=== PATIENT | male | born 1970 | race Caucasian/White ===

== ENCOUNTER → 2019-09-11 16:03 | Outpatient (CLI) | payer MEDICAID, SELFPAY ==
--- NOTE | 2019-09-11 16:12 | RAD_ITS ---
STUDY: X-RAY - LEFT SHOULDER REASON FOR EXAM: Male, 49 years old. left shoulder pain, patient states she has a torn labrum TECHNIQUE: 4 view(s) of the shoulder. COMPARISON: None. FINDINGS: Narrowed glenohumeral articulation. Normal acromioclavicular joint. Normal acromion. There is spurring of the medial humeral head and inferior glenoid process. The soft tissue structures are unremarkable. Normal visualized pulmonary apex. RAD/Shoulder min 2 Views IMPRESSION: Degenerative changes. No evidence for acute fracture. Electronically Signed: Drake Gore MD at 22:30 EST , Service support ,
== END ==
PROVIDERS: Referring Provider Nurse Practitioner Family; Visit Provider Nurse Practitioner Family
DX: M25.512 Pain in left shoulder (principal)
CPT/HCPCS: 73030

== ENCOUNTER → 2019-10-21 13:01 | Outpatient (CLI) | payer MEDICAID, SELFPAY ==
[2019-09-20 09:48] VITALS: BMI 29.9
--- NOTE | 2019-10-21 13:03 | MRI_ITS ---
STUDY: MRI LEFT SHOULDER REASON FOR EXAM: Left shoulder pain, limited range of motion, history of dislocations. TECHNIQUE: Standardized fat and water weighted pulse sequences were obtained in all 3 orthogonal planes. COMPARISON: Radiographs 09/11/2019. FINDINGS: There is mild supraspinatus tendinosis (T2 sagittal image 19) without discrete tendon tear. Normal infraspinatus tendon. There is mild subscapularis tendinosis (T2 axial image 14) without discrete tendon tear. Normal teres minor tendon. Normal supraspinatus muscle. Normal infraspinatus muscle. Normal subscapularis muscle. Normal teres minor muscle. There is glenohumeral arthrosis with marginal osteophytes of the humeral head, subchondral cystic change and chondral thinning (T2 coronal images 10-15). There is a joint effusion with fluid extending into the bicipital tendon sheath and intra-articular bodies in the axillary recess (T2 coronal images 9-12), bicipital tendon sheath (proton density axial images 15-17) and subscapularis recess (T2 sagittal images 11, 12). Normal intracapsular long biceps tendon. There is diffuse tear/degeneration of the labrum. Normal capsulo- ligamentous complex. There is no substantial acromioclavicular arthrosis. There is an os acromiale (T2 axial image 3). There is a Type II morphology (curved), with a neutral orientation. There is no subacromial-subdeltoid bursal fluid. Normal visualized coracohumeral and coracoacromial ligaments. Normal deltoid muscle. Normal trapezius muscle. MRI/Upper Ext Joint Only(Routine) IMPRESSION: Mild supraspinatus and subscapularis tendinosis without demonstrated rotator cuff tear. Glenohumeral arthrosis with intra-articular bodies and tear/degeneration of the labrum. Os acromiale. Glenohumeral joint effusion. Electronically Signed: Rocky Albert MD at 14:15 EDT Tel , Service support ,
== END ==
PROVIDERS: Referring Provider Physician Assistant; Visit Provider Physician Assistant
DX: M19.012 Primary osteoarthritis, left shoulder (principal); M25.512 Pain in left shoulder
CPT/HCPCS: 73221

== ENCOUNTER 2019-10-31 14:02 | Inpatient (IN) | payer MEDICAID, SELFPAY ==
[2019-09-20 09:48] VITALS: BMI 29.9
[2019-10-31] VITALS (11 sets, daily range): BP systolic 135–161; BP diastolic 88–103; PULSE 84–109; RESP 14–24; TEMP 36.9–39.5; O2SAT 92–96; BMI 29.4; BMI 29.0
--- NOTE | 2019-10-31 14:28 | RAD_ITS ---
STUDY: X-RAY CHEST REASON FOR EXAM: Male, 49 years old. FEVER, COUGH, MCCONNELL AND EGOPHONY RLL TECHNIQUE: Single AP portable view of the chest. COMPARISON: None. FINDINGS: EKG electrodes are seen. Patchy infiltrates in both upper lobes more prominent on the right side. There is no demonstrated pleural abnormality. Normal size heart. Normal mediastinum and irene. Normal visualized pulmonary arteries. There is atherosclerotic tortuosity of the aortic arch and descending thoracic aorta. Normal visualized thoracic spine. Normal visualized ribs, clavicles, and shoulders. There is no demonstrated abnormality of the visualized soft tissue structures of the upper abdomen. RAD/Chest 1 View (Portable) IMPRESSION: Patchy infiltrates in both upper lobes worse on the right side. Electronically Signed: Linus Almanzar, at 14:56 EDT , Service support ,
--- NOTE | 2019-10-31 14:28 | EKG12_ITS ---
Test Reason : SOB Blood Pressure : / mmHG Vent. Rate : 092 BPM Atrial Rate : 092 BPM P-R Int : 146 ms QRS Dur : 098 ms QT Int : 354 ms P-R-T Axes : 057 021 045 degrees QTc Int : 437 ms Normal sinus rhythm Possible Left atrial enlargement Borderline ECG Confirmed by JAN GONSALES ([id number]), makeup editor PK RODRIGUEZ ([id number]) on 11/04/2019 1:03:57 PM Referred By: JUNAID Confirmed By:JAN GONSALES
--- NOTE | 2019-10-31 14:31 | ED.VIS.GEN ---
History of Present Illness Chief Complaint: Shortness of Breath Informant: Patient Onset: Days - Onset 4 days ago October 27 Context: Sudden Onset Timing: Continuous Quality: Fever, upper respiratory symptoms and scantly productive cough Location: Upper respiratory Current Severity: Mild Maximum Severity: Moderate Worsened by: Dyspnea on exertion Relieved by: Nothing Associated Symptoms: Flulike symptoms Narrative: Patient is a 49-year-old male with history of hypertension who contacted the [facility]. He was referred to the emergency department. He states he had a fever on Monday. He had intermittent fever since that time. He does complain of congestion, rhinorrhea and sore throat. He denies alteration in smell or taste. He does report having a cough that at times is productive. He denies any auditory symptoms. He denies change in voice. He does report dyspnea on exertion. He states if he walks up a flight of stairs to his attic he has to stop because of shortness of breath. He has not smoked since college. He denies alcohol or drug use. He denies GI symptoms. He denies urologic symptoms. Prior similar symptoms: No Recent Illness/Hospitalization: No - Past Medical History (1) Hypertension Status: Chronic Past Medical History - Allergies and Home Meds Allergies/Adverse Reactions: Allergies No Known Allergies Allergy (Unverified 10/31/19 14:03) Primary Care Physician: Mlya Nunez [NON-STAFF] - Prior records reviewed: Yes Surgical History: noncontributory Lives: Spouse/ Significant Other Smoking Status: Former smoker Alcohol: None Drugs: None Review of Systems General: Reports: Chills, Fever, Malaise. Denies: Subjective, Sweats, Weight loss Eyes: Denies: Visual changes - bilaterally, Blurred Vision - bilaterally, Diplopia ENT: Reports: Rhinorrhea, Sore throat. Denies: Bilateral ear pain Cardiovascular: Denies: Chest pain, Palpitations Respiratory: Reports: Dyspnea, Cough, Sputum, Dyspnea on exertion Gastrointestinal: Denies: Abdominal pain, Nausea, Vomiting, Diarrhea, Melena, Hematochezia Musculoskeletal: Reports: Myalgias. Denies: Arthralgias, Neck pain, Back pain, Swelling, Extremity Pain, -, - Skin: Denies: Rash, Wounds Neurological: Denies: Headache, Weakness, Numbness Hematologic: Denies: Easy bruising, Easy bleeding Allergy: Denies: Uticaria, Swelling of the mouth Physical Exam Vital Signs/Narrative: Vital Signs Temp Pulse Resp BP Pulse Ox 10/31/19 14:24 100.5 F H 99 14 161/103 H 92 10/31/19 14:03 100.5 F H 105 H 24 H 143/88 H 95 Inital Vital Signs reviewed: Yes General: Well nourished, Well developed, - - Patient appears ill but not toxic. Head: Normocephalic, Atraumatic Eyes: Perrl, EOMI. Negative for: Pale conjunctiva, Scleral icterus ENT: Moist mucous membranes, TM's clear, Nasal congestion. Negative for: No rhinorrhea, Sinus tenderness Neck: Supple, Nontender, No lymphadenopathy, No JVD, - - Trachea is midline. There is no inspiratory expiratory stridor. Cardiovascular: Regular rhythm, No murmurs, Normal S1, Normal S2, Tachycardia Respiratory: Chest nontender, - - Adventitial breath sounds noted left. There is egophony right lower lobe posteriorly.. Negative for: No distress, CTA bilaterally Abdomen: Soft, Nontender, Nondistended, Normal bowel sounds, No masses. Negative for: Hyperactive bowel sounds, Hypoactive bowel sounds, Hepatomegaly, Splenomegaly, Pulsatile mass Rectal: Deferred Back: Nontender, Normal Inspection. Negative for: CVA tenderness Extremities: Nontender, No edema Skin: Normal color, No rash, No Trauma. Negative for: Cyanosis, Diaphoresis, Jaundice Neurological: Alert, Oriented x3, Cranial nerves II-XII grossly intact, Normal Strength, Normal Sensation, Normal DTR Psychological: Normal affect, Normal Mood Diagnostic/Tx/Re-eval Chest X-Ray - ED: 1 View, Read by ED Physician, - - Is of concern for the novel coronavirus infection portable chest x-ray was obtained. There is a fluffy right upper lobe infiltrate noted. Cardiac silhouette and size are normal. Osseous structures appear normal. X-ray was interpreted by me at 1440. Antibiotics were ordered based on my x-ray. Viewing the portable chest x-ray on the large moderate versus the portable x-ray machine patient has bilateral interstitial upper lobe pneumonia and possibly left lower. Since patient has multilobar pneumonia he will require admission to the hospital. Interpretation. Impressions Chest X-Ray 10/31/19 14:28 IMPRESSION: Patchy infiltrates in both upper lobes worse on the right side. Electronically Signed: Linus Almanzar, at 14:56 EDT , Service support , 10/31/19 14:28 Chest 1 View (Portable) [RAD] Stat 10/31/19 14:28 Mucosa - Nose Influenza Types A,B Direct FA ([facility]) - Final Laboratory Results 10/31/19 10/31/19 10/31/19 14:25 14:25 14:25 WBC 13.4 H RBC 4.34 L Hgb 15.4 Hct 43.2 MCV 99.5 H MCH 35.5 H MCHC 35.6 RDW Std Deviation 44.8 H RDW Coeff of Zuleika 12.3 Plt Count 324 MPV 9.4 Immature Gran % (Auto) 0.900 Neut % (Auto) 84.2 H Lymph % (Auto) 8.7 L [place] % (Auto) 5.7 Eos % (Auto) 0.3 Baso % (Auto) 0.2 Absolute Neuts (auto) 11.3 H Absolute Lymphs (auto) 1.17 Nucleated RBC % 0 PT 13.7 INR 1.1 APTT 29.1 Sodium 128 L Potassium 3.6 Chloride 91 L Carbon Dioxide 29.0 Anion Gap 8 BUN 14 Creatinine 0.89 Estim Creat Clear Calc 108.11 Est GFR (MDRD) Af Amer 117 Est GFR (MDRD) Non-Af 97 BUN/Creatinine Ratio 15.7 Glucose 113 H Lactic Acid Calcium 9.6 Total Bilirubin 2.50 H AST 170 H ALT 123 H Alkaline Phosphatase 210 H Total Protein 8.3 H Albumin 3.4 Globulin 4.9 H Albumin/Globulin Ratio 0.7 L 10/31/19 14:25 WBC RBC Hgb Hct MCV MCH MCHC RDW Std Deviation RDW Coeff of Zuleika Plt Count MPV Immature Gran % (Auto) Neut % (Auto) Lymph % (Auto) [place] % (Auto) Eos % (Auto) Baso % (Auto) Absolute Neuts (auto) Absolute Lymphs (auto) Nucleated RBC % PT INR APTT Sodium Potassium Chloride Carbon Dioxide Anion Gap BUN Creatinine Estim Creat Clear Calc Est GFR (MDRD) Af Amer Est GFR (MDRD) Non-Af BUN/Creatinine Ratio Glucose Lactic Acid 1.3 Calcium Total Bilirubin AST ALT Alkaline Phosphatase Total Protein Albumin Globulin Albumin/Globulin Ratio - Rhythm Strip Rhythm Strip: Sinus Tach Rate: 105 Ectopy: None - EKG Initial EKG Interpretation: Sinus Rhythm - Sinus rhythm with a ventricular rate of 92. AR interval 146 ms. QRS duration 98 ms. QT duration 354 ms and the axis is normal. The EKG reveals no ischemic changes and is unremarkable. - Medical Decision Making Patient presents for evaluation and concern for COVID 19. Differential diagnosis includes viral illness including influenza, novel coronal virus, typical versus atypical pneumonia. Sepsis work-up was initiated. He received acetaminophen for his fever. ED Disposition - Plan for ED Patient: Disposition: Acute Care Hospital [facility] Diagnosis: Suspected 2019 novel coronavirus infection, Bilateral upper lobe community acquired pneumonia, Sepsis, Sinus tachycardia seen on surface hydrologist Referrals: Yanique Rinaldi,Myla Villegas [NON-STAFF] -
[2019-10-31] MEDS: Acetaminophen 325 MG Tablet 650 MG PO ×2 (14:41→21:54)
[2019-10-31] MEDS: 0.9% Normal Saline 1,000 ML 250 ML IV (14:42)
[2019-10-31 14:49] LABS: Absolute Lymphocyte Count 1.17 X10^3/uL (0.83-4.51); Absolute Neutrophil Count 11.3 X10^3/uL (2.0-7.7); Basophil# 0.03 X10^3/uL; Basophil% 0.2 % (0-1); Eosinophil# 0.04 X10^3/uL; Eosinophils% 0.3 % (0-5); Hematocrit 43.2 % (40-54); Hemoglobin 15.4 g/dL (13.0-16.5); Lymphocyte # 1.17 X10^3/ul (4.0); Lymphocyte % 8.7 % (19-41); Mean Corp Hgb Conc 35.6 g/dL (32-36); Mean Corpuscular Hgb 35.5 pg (27.0-32.0); Mean Corpuscular Volume 99.5 fL (80-94); Mean Platelet Vol. 9.4 fl (6.2-12.0); Monocyte# 0.76 X10^3/uL; Monocyte% 5.7 % (0-10); NRBC Flagged by Analyzer 0 % (0-5); Neutrophil # 11.27 X10^3/uL (2.7-7.7); Neutrophil % 84.2 % (47-70); Platelet Count 324 K/mm3 (150-450); RBC Distribution Width CV 12.3 % (11.6-14.6); RBC Distribution Width SD 44.8 fl (35.1-43.9); Red Blood Count 4.34 M/mm3 (4.6-6.2); White Blood Count 13.4 K/mm3 (4.4-11.0)
[2019-10-31 14:56] LABS: International Normalized Ratio 1.1; Prothrombin Time (Protime)PT. 13.7 SECONDS (11.7-14.9)
[2019-10-31 14:57] LABS: Partial Thromboplast Time 29.1 Seconds (24.1-36.2)
[2019-10-31 15:05] LABS: ALB/GLOB Ratio 0.7 RATIO (0.9-2.4); AST(SGOT) 170 U/L (15-37); Alanine Aminotransfer ALT/SGPT 123 U/L (16-61); Albumin, Serum 3.4 g/dL (3.2-5.0); Alkaline Phosphatase 210 U/L (45-117); Anion Gap 8 (5-15); BUN 14 mg/dL (7-18); BUN/Creat Ratio 15.7 RATIO (10-20); Calcium,Total 9.6 mg/dL (8.5-10.1); Chloride 91 mmol/L (98-107); Creatinine, Serum 0.89 mg/dL (0.70-1.30); EST Glomerular Filtration Rate 97 mL/min (>60); Est Glom Filt Rate - Afr Amer 117 mL/min (>60); Estimated Creatinine Clearance 108.11 ml/min; Globulin 4.9 g/dL (2.2-4.2); Glucose 113 mg/dL (74-106); Potassium 3.6 mmol/L (3.5-5.1); Protein, Total 8.3 g/dL (6.4-8.2); Sodium Level 128 mmol/L (136-145)
[2019-10-31 15:16] LABS: Lactic Acid 1.3 mmol/L (0.4-1.9)
--- NOTE | 2019-10-31 15:32 | ED.RN ---
dr yeboah requests iv antibiotics to be inititated. aware no urine obtained. plan of care based on malcolm
--- NOTE | 2019-10-31 15:45 | PCM.HP.STD ---
Problem List (1) Sepsis Status: Acute Qualifiers: Sepsis type: sepsis due to unspecified organism Sepsis acute organ dysfunction status: unspecified Qualified Code(s): A41.9 - Sepsis, unspecified organism (2) Bilateral upper lobe community acquired pneumonia Status: Acute (3) Suspected 2019 novel coronavirus infection Status: Acute (4) Former tobacco use Status: Chronic (5) Hypertension Status: Chronic Qualifiers: Hypertension type: essential hypertension Qualified Code(s): I10 - Essential (primary) hypertension (6) ADHD Status: Chronic Qualifiers: Attention deficit-hyperactivity disorder type: unspecified Qualified Code(s): F90.9 - Attention-deficit hyperactivity disorder, unspecified type (7) GERD (gastroesophageal reflux disease) Status: Chronic Qualifiers: Esophagitis presence: esophagitis presence not specified Qualified Code(s): K21.9 - Gastro-esophageal reflux disease without esophagitis History of Present Illness Date of Admission: 10/31/19 Chief Complaint: Cough, dyspnea, fevers The patient is a 49 y/o M w/ PMHx: GERD, Former tobacco use (college), HTN, Asthma, Allergic Rhinitis, ADHD who presents to the [facility] ED on 10/31/19 with history of onset fever starting on Monday with associated congestion, rhinorrhea, sore throat with ongoing dry cough although he does state he feels as though there is something in his chest with significant pleuritic discomfort with any cough or deep inspiratory effort and describes it as if someone is pressing on his lungs with significant arthralgias and myalgias associated with no loss or alteration of smell with worsening dyspnea, especially on exertion prompting ED presentation. Patient does reside with his mother and father both of whom have had a cancer history and denies any symptoms similar to his in them. Work-up in the ED T 100.5, HR 100, BP 161/103, RR 18, 92% on RA, CBC with WBC 13.4, hemoglobin 15.4, platelet 324 with left shift, unremarkable coags, CMP with sodium 128, chloride 91, glucose 113, lactic acid 1.3, total bilirubin 2.5, AST/ALT 170/123, alk phos 210, blood culture x2 pending per ED, rapid influenza negative, EKG was sinus rhythm with no acute evidence of ischemia, CXR with patchy infiltrates in BL upper lobes, worse right side. In the ED patient administered azithromycin, rocephin, NS, tylenol. Past Medical History Past Medical History (Chronic Problems): Chronic Problems Hypertension (Chronic) Former tobacco use (Chronic) GERD (gastroesophageal reflux disease) (Chronic) ADHD (Chronic) Allergies No Known Allergies Allergy (Unverified 10/31/19 14:03) Home Medications: Ambulatory Orders Medication Instructions Recorded cholecalciferol (vitamin D3) 1,250 50,000 unit PO QWEEK 09/20/19 mcg (50,000 unit) capsule methylphenidate HCl 10 mg tablet 10 mg PO BID 09/20/19 metoprolol tartrate 50 mg tablet 50 mg PO BID 09/20/19 Albuterol IH (ProAir) [Proair Hfa 2 puff INHALATION Q4H PRN PRN 10/31/19 (SP)Vent Pts] Meloxicam [Mobic] 7.5 mg PO BID 10/31/19 Montelukast [Singulair] 10 mg PO DAILY 10/31/19 Omeprazole [Prilosec] 20 mg PO DAILY 10/31/19 Surgical History: no surgical history Psychiatric History: Attn. deficit disorder Lives: With Family - Patient lives with his mother and father currently. Smoking Status: Former smoker - Patient smoked remotely in college only. Tobacco Use: Non-smoker Alcohol: Occasional - Patient notes drinking 2-3 vodka lemonade's sometimes daily but often can go at least a week or 2 without, last drink 1 week prior. Drugs: None - *Family History Maternal History Items: - - Patient notes a maternal family history of heart disease, CO, CAD, cancer of unclear type but notes that a muscle in her neck was removed secondary. Paternal History Items: - - Patient notes paternal family history of hypertension and cancer as well. Review of Systems Constitutional: Reports: Anorexia, Fever, Malaise, Weakness, Fatigue. Denies: Chills, Weight Change HEENT: Denies: Head Aches, Sinus Congestion, Sinus Drainage Cardiovascular: Reports: Chest Pain. Denies: Palpitations Respiratory: Reports: Cough, Pleuritic Pain, Shortness of Breath, Shortness of breath at rest, Shortness of breath upon exertion. Denies: Sputum production, Wheezing Gastrointestinal: Reports: Dyspepsia. Denies: Abdominal Pain, Nausea, Vomiting Genitourinary: Denies: Dysuria Musculoskeletal: Reports: Back Pain, Joint Pain, Muscle pain. Denies: Joint Tenderness Skin: Denies: Rash, Wounds Neurological: Denies: Numbness, Tingling, Focal weakness Psychiatric: Reports: - - ADHD. Denies: Anxiety, Depression, Homicidal Ideations, Suicidal Ideations Hematologic/ Lymphatic: Denies: Easy Bruising, Easy Bleeding VTE Information - Inpt Only VTE Present on Admission: No VTE Mechan Device Prophylaxis: SCD's VTE Pharm Prophylaxis ordered?: Yes Patient Problems: Active and Suspected Problems Suspected 2018 novel coronavirus infection (Acute) Bilateral upper lobe community acquired pneumonia (Acute) Sepsis (Acute) Sinus tachycardia seen on cardiac exercise specialist (Acute) Subjective: Seated upright in the ED bed, fatigued appearance, flushed, ill-appearing. Objective: Physical Examination: General: awake, alert, oriented x 3 and cooperative, seated upright in the ED bed, flushed appearance, ill-appearing, no acute distress. Skin: Flushed skin color, turgor, no icterus, cyanosis. HEENT: AT/NC, EOMI, PERRLA, mask in place, no carotid bruits or JVD noted. Lungs: Diffusely diminished breath sounds, greater bases, decreased effort, dry cough elicited with deep inspiratory effort attempts, no rales, ronchi or wheezing. Heart: Tachycardic with regular rhythm; no gallop, rub audible. Abdomen: soft, overweight, NTTP, ND, normal BS, no HSM. Extremities: no cyanosis, clubbing, or edema. Neurological: patient awake, alert, oriented x 3; cognitive function intact; pupils equally reactive to light and accomodation; cranial nerves II-XII grossly normal, moving all 4 extremities, no focal deficits, strength moderately to severely global decrease secondary to acute presentation. Psychiatric: affect appears fatigued, ill-appearing, no acute evidence of depressive or anxiety feelings. - Physical Exam Vitals/I&O's: Vital Signs Temp Pulse Resp BP Pulse Ox 100.5 F H 94 20 H 161/103 H 96 10/31/19 14:24 10/31/19 14:33 10/31/19 14:33 10/31/19 14:33 10/31/19 14:33 Oxygen Flow Rate (L/min) 2 Oxygen Delivery Method Room Air Weight: 211 lb 3.245 oz Body Mass Index (BMI) 29.4 Microbiology Past 72 Hours 03/26/20 14:28 Mucosa - Nose Influenza Types A,B Direct FA ([facility]) - Final Laboratory Results 10/31/19 14:25: WBC 13.4 H, RBC 4.34 L, Hgb 15.4, Hct 43.2, MCV 99.5 H, MCH 35.5 H, MCHC 35.6, RDW Std Deviation 44.8 H, RDW Coeff of Zuleika 12.3, Plt Count 324, MPV 9.4, Immature Gran % (Auto) 0.900, Neut % (Auto) 84.2 H, Lymph % (Auto) 8.7 L, [place] % (Auto) 5.7, Eos % (Auto) 0.3, Baso % (Auto) 0.2, Absolute Neuts (auto) 11.3 H, Absolute Lymphs (auto) 1.17, Nucleated RBC % 0 10/31/19 14:25: PT 13.7, INR 1.1, APTT 29.1 10/31/19 14:25: Sodium 128 L, Potassium 3.6, Chloride 91 L, Carbon Dioxide 29.0, Anion Gap 8, BUN 14, Creatinine 0.89, Estim Creat Clear Calc 108.11, Est GFR (MDRD) Af Amer 117, Est GFR (MDRD) Non-Af 97, BUN/Creatinine Ratio 15.7, Glucose 113 H, Calcium 9.6, Total Bilirubin 2.50 H, AST 170 H, ALT 123 H, Alkaline Phosphatase 210 H, Total Protein 8.3 H, Albumin 3.4, Globulin 4.9 H, Albumin/Globulin Ratio 0.7 L 10/31/19 14:25: Lactic Acid 1.3 Current Medications Sodium Chloride () 1,000 mls @ 250 mls/hr IV .Q4H [facility] Last Admin: 10/31/19 14:42 Dose: 250 mls/hr Documented by: Assessment/Plan All Active Problems Suspected 2018 novel coronavirus infection (Acute) Bilateral upper lobe community acquired pneumonia (Acute) Sepsis (Acute) Sinus tachycardia seen on cardiac exercise specialist (Acute) The patient is a 49 y/o M w/ PMHx: GERD, Former tobacco use, HTN, Asthma, Allergic Rhinitis, ADHD who presents to the [facility] ED on 10/31/19 with history of onset fever starting on Monday with associated congestion, rhinorrhea, sore throat with ongoing cough, noted to be productive with no loss or alteration of smell with worsening dyspnea, especially on exertion prompting ED presentation. 1. Acute Sepsis secondary to Suspected Acute Viral Syndrome, Suspected COVID-19 with Bilateral Upper Lobe Community Acquired Pneumonia: Will admit to COVID floor, maintain on oxygen with wean as tolerated to room air, given underlying asthma history will maintain on ATC duonebs, PRN albuterol, maintained on IV Rocephin and Azithromycin, HOB, IS parameters w/ pending sputum cultures, full respiratory viral panel and urine antigens. Bld cx x 2 obtained in the ED. Will maintain on precautions given suspicions. If not clinically improving in the next 24-48 hours with negative respiratory viral panel would consider COVID-19 testing. Repeat CXR in AM, may consider CT Chest also. If clinically worsens with transition to the ICU. 2. Hyponatremia, suspected hypovolemic: Admission sodium 128, chloride 91, suspected secondary to hypovolemia secondary to acute presentation, continue to aggressively hydrate, repeat CMP in AM. 3. Transaminitis, hyperbilirubinemia: Admission total bilirubin 2.5, AST/ALT 170/123, alk phos 210, suspected secondary to acute presentation, demand, will continue to hydrate and treat #1 aggressively as noted, repeat CMP in a.m. If worsening levels may need to consider liver ultrasound and hepatitis panel. 4. Chronic asthma: Given acute presentation with underlying pulmonary disease will cautiously maintain on ATC duonebs, PRN albuterol, encourage HOB, IS. 5. Hypertension: Continue home regimen including metoprolol with hold parameters given acute presentation, PRN hydralazine. 6. ADHD: We will hold patient methylphenidate. 7. Allergic rhinitis: Patient with as noted underlying history of asthma with allergic rhinitis, continue Singulair. 8. Remote former tobacco use: Encouraged continued tobacco cessation. 9. DVT prophylaxis: SCDs, Lovenox. Inpatient E&M: [id number] Init Hosp L3
[2019-10-31 17:01] LABS: Mucous, Urine 0 SEEN /hpf (<or=2+); Red Blood Cells-Urine 0 SEEN /hpf (0-5); Squamous Epithelial Cells - UA 0 SEEN /hpf (0-5); White Blood Cells 0 SEEN /hpf (0-5)
[2019-10-31 17:05] LABS: Color, Urine Yellow (Yellow); Glucose, Dipstick Normal (Normal); Ketone-Dipstick 15 mg/dl (Negative); Leukocyte Esterase-Dipstick 25 /ul (Negative); Nitrite-Dipstick Negative (Negative); Occult Blood-Urine Negative /ul (Negative); Protein-Dipstick 30 mg/dl (Negative); Specific Gravity, Urine 1.005 (1.002-1.030); Urine Bilirubin Dipstick 1 mg/dL (Negative); Urine Clarity Clear (Clear); Urine Urobilinogen 4 mg/dl (Normal); Urine pH 6.5 (5.0 - 8.0)
[2019-10-31 17:13] LABS: Bacteria RARE /hpf (None Seen)
[2019-10-31] MEDS: 0.9% Normal Saline 1,000 ML 150 ML IV (18:15)
[2019-10-31] MEDS: Ipratropium/Albuterol Sulfate 3 ML AMPUL.NEB INHALATION (19:15)
[2019-10-31 19:16] LABS: Procalcitonin 0.51 ng/mL (0.00-0.09)
[2019-10-31 19:24] LABS: Ferritin 2045 ng/mL (26-388); LDH 361 U/L (87-241)
[2019-10-31] MEDS: Meloxicam 7.5 MG Tablet PO (21:54)
[2019-10-31] MEDS: Famotidine 20 MG Tablet PO (21:54)
[2019-10-31] MEDS: Metoprolol Tartrate 50 MG Tablet PO (21:54)
[2019-10-31] MEDS: BENZOCAINE/MENTHOL 1 LOZENGE MUCOUS MEM (21:55)
[2019-11-01] VITALS (9 sets, daily range): BP systolic 128–156; BP diastolic 79–91; PULSE 65–105; RESP 16–20; TEMP 37.2–38.3; O2SAT 93–97
[2019-11-01] MEDS: MELATONIN 3 MG TABLET PO (00:11)
[2019-11-01] MEDS: 0.9% Normal Saline 1,000 ML 150 ML IV ×2 (00:12→04:35)
[2019-11-01] MEDS: guaiFENesin 10 ML UDC (200MG/10ML) 20 ML PO (00:12)
--- NOTE | 2019-11-01 05:55 | RAD_ITS ---
HISTORY: DYSPNEA, BILAT PNEUMONIA? COVID 19 ADDITIONAL HISTORY: None provided. TECHNIQUE: Frontal chest radiograph. Number of images including paperwork: 1 COMPARISON: 10/31/2019 FINDINGS: LUNGS AND PLEURA: Multifocal bilateral infiltrates without gross change. No pleural effusion. No pneumothorax. CARDIAC SILHOUETTE: Unremarkable. MEDIASTINUM AND MEGHNA: Aortic tortuosity. UPPER ABDOMEN: Unremarkable. SKELETON AND SOFT TISSUES: No acute findings. Degenerative changes. OTHER DEVICES AND HARDWARE: None. RAD/Chest 1 View (Portable) IMPRESSION: No significant interval change. at 0601 Reported and signed by: Eileen Mccollum MD Electronically Signed: Eileen Mccollum MD at 6:00 EDT Tel , Service support ,
[2019-11-01 07:05] LABS: Absolute Lymphocyte Count 1.35 X10^3/uL (0.83-4.51); Absolute Neutrophil Count 8.8 X10^3/uL (2.0-7.7); Basophil# 0.04 X10^3/uL; Basophil% 0.4 % (0-1); Eosinophil# 0.06 X10^3/uL; Eosinophils% 0.5 % (0-5); Hematocrit 39.1 % (40-54); Hemoglobin 13.8 g/dL (13.0-16.5); Lymphocyte # 1.35 X10^3/ul (4.0); Lymphocyte % 12.2 % (19-41); Mean Corp Hgb Conc 35.3 g/dL (32-36); Mean Corpuscular Hgb 35.8 pg (27.0-32.0); Mean Corpuscular Volume 101.6 fL (80-94); Mean Platelet Vol. 9.5 fl (6.2-12.0); Monocyte# 0.76 X10^3/uL; Monocyte% 6.8 % (0-10); NRBC Flagged by Analyzer 0 % (0-5); Neutrophil % 79.3 % (47-70); Platelet Count 277 K/mm3 (150-450); RBC Distribution Width CV 12.5 % (11.6-14.6); RBC Distribution Width SD 46.1 fl (35.1-43.9); Red Blood Count 3.85 M/mm3 (4.6-6.2); White Blood Count 11.1 K/mm3 (4.4-11.0)
[2019-11-01] MEDS: Ipratropium/Albuterol Sulfate 3 ML AMPUL.NEB INHALATION ×2 (07:29→12:01)
[2019-11-01 07:31] LABS: ALB/GLOB Ratio 0.6 RATIO (0.9-2.4); AST(SGOT) 151 U/L (15-37); Alanine Aminotransfer ALT/SGPT 134 U/L (16-61); Albumin, Serum 2.7 g/dL (3.2-5.0); Alkaline Phosphatase 195 U/L (45-117); Anion Gap 9 (5-15); BUN 11 mg/dL (7-18); BUN/Creat Ratio 13.6 RATIO (10-20); Calcium,Total 8.6 mg/dL (8.5-10.1); Chloride 96 mmol/L (98-107); Creatinine, Serum 0.81 mg/dL (0.70-1.30); EST Glomerular Filtration Rate 108 mL/min (>60); Est Glom Filt Rate - Afr Amer 130 mL/min (>60); Estimated Creatinine Clearance 118.79 ml/min; Globulin 4.2 g/dL (2.2-4.2); Glucose 110 mg/dL (74-106); Potassium 3.9 mmol/L (3.5-5.1); Protein, Total 6.9 g/dL (6.4-8.2); Sodium Level 132 mmol/L (136-145)
--- NOTE | 2019-11-01 07:40 | PN_ITS ---
Patient Problems: Active and Suspected Problems Suspected 2018 novel coronavirus infection (Acute) Bilateral upper lobe community acquired pneumonia (Acute) Sepsis (Acute) Sinus tachycardia seen on conveyor monitor (Acute) Vitals/I&O's: Vital Signs Temp Pulse Resp BP Pulse Ox 98.9 F 90 20 H 128/90 H 93 11/01/19 04:30 11/01/19 07:23 11/01/19 07:23 11/01/19 04:30 11/01/19 07:23 Oxygen Flow Rate (L/min) 2 Oxygen Delivery Method Room Air Weight: 94.347 kg Body Mass Index (BMI) 29.0 Intake and Output for Last 24 Hours 10/30/19 10/31/19 11/01/19 23:59 23:59 23:59 Intake Total 1184.17 / 1184.17 3510.0 / 3510.0 Output Total 600 / 600 Balance 1184.17 / 1184.17 2910.0 / 2910.0 Microbiology Past 72 Hours 10/31/19 19:25 Mucosa - Nasopharyngeal Respiratory Panel (PCR) - Final 10/31/19 16:49 Urine, Clean Catch Streptococcus pneumoniae Antigen (M - Final 10/31/19 16:49 Urine, Clean Catch Legionella Antigen - Final 10/31/19 14:28 Mucosa - Nose Influenza Types A,B Direct FA (BJ) - Final Laboratory Results 10/31/19 14:25: WBC 13.4 H, RBC 4.34 L, Hgb 15.4, Hct 43.2, MCV 99.5 H, MCH 35.5 H, MCHC 35.6, RDW Std Deviation 44.8 H, RDW Coeff of Zuleika 12.3, Plt Count 324, MPV 9.4, Immature Gran % (Auto) 0.900, Neut % (Auto) 84.2 H, Lymph % (Auto) 8.7 L, [place] % (Auto) 5.7, Eos % (Auto) 0.3, Baso % (Auto) 0.2, Absolute Neuts (auto) 11.3 H, Absolute Lymphs (auto) 1.17, Nucleated RBC % 0 10/31/19 14:25: PT 13.7, INR 1.1, APTT 29.1 10/31/19 14:25: Sodium 128 L, Potassium 3.6, Chloride 91 L, Carbon Dioxide 29.0, Anion Gap 8, BUN 14, Creatinine 0.89, Estim Creat Clear Calc 108.11, Est GFR (MDRD) Af Amer 117, Est GFR (MDRD) Non-Af 97, BUN/Creatinine Ratio 15.7, Glucose 113 H, Calcium 9.6, Total Bilirubin 2.50 H, AST 170 H, ALT 123 H, Alkaline Phosphatase 210 H, Total Protein 8.3 H, Albumin 3.4, Globulin 4.9 H, Albumin/Globulin Ratio 0.7 L 10/31/19 14:25: Lactic Acid 1.3 10/31/19 16:49: Urine Color Yellow, Urine Clarity Clear, Urine pH 6.5, Ur Specific [place] 1.005, Urine Protein 30 H, Urine Glucose (UA) Normal, Urine Ketones 15 H, Urine Occult Blood Negative, Urine Nitrite Negative, Urine Bilirubin 1 H, Urine Urobilinogen 4 H, Ur Leukocyte Esterase 25 H, Urine RBC 0 SEEN, Urine WBC 0 SEEN, Ur Squamous Epith Cells 0 SEEN, Urine Bacteria RARE, Urine Mucus 0 SEEN 10/31/19 18:42: Ferritin 2045 H, Lactate Dehydrogenase 361 H, Troponin I < 0.015, C-React Prot Ext Range 220.00 H 10/31/19 18:42: Procalcitonin 0.51 H 11/01/19 06:55: WBC 11.1 H, RBC 3.85 L, Hgb 13.8, Hct 39.1 L, MCV 101.6 H, MCH 35.8 H, MCHC 35.3, RDW Std Deviation 46.1 H, RDW Coeff of Zuleika 12.5, Plt Count 277, MPV 9.5, Immature Gran % (Auto) 0.800, Neut % (Auto) 79.3 H, Lymph % (Auto) 12.2 L, Butler % (Auto) 6.8, Eos % (Auto) 0.5, Baso % (Auto) 0.4, Absolute Neuts (auto) 8.8 H, Absolute Lymphs (auto) 1.35, Nucleated RBC % 0 11/01/19 06:55: Sodium 132 L, Potassium 3.9, Chloride 96 L, Carbon Dioxide 27.0, Anion Gap 9, BUN 11, Creatinine 0.81, Estim Creat Clear Calc 118.79, Est GFR (MDRD) Af Amer 130, Est GFR (MDRD) Non-Af 108, BUN/Creatinine Ratio 13.6, Glucose 110 H, Calcium 8.6, Total Bilirubin 1.60 H, AST 151 H, ALT 134 H, Alkaline Phosphatase 195 H, Total Protein 6.9, Albumin 2.7 L, Globulin 4.2, Albumin/Globulin Ratio 0.6 L Current Medications Acetaminophen (Tylenol) 650 mg PO Q6H PRN PRN PRN Reason: Pain Score 1-10/Temp > 100.7 F Last Admin: 10/31/19 21:54 Dose: 650 mg Documented by: Al Hydroxide/Mg Hydroxide (Mylanta Ii) 30 ml PO Q6H PRN PRN PRN Reason: Gastric Burning Albuterol Sulfate (Ventolin Aerosols) 2.5 mg INHALATION Q2H PRN PRN PRN Reason: dyspnea, wheezing Albuterol/Ipratropium (Duoneb) 3 ml INHALATION Q4HWA.RT [facility] Last Admin: 11/01/19 07:29 Dose: 3 ml Documented by: Enoxaparin Sodium (Lovenox) 40 mg SC DAILY THAD Famotidine (Pepcid) 20 mg PO BID [facility] Last Admin: 10/31/19 21:54 Dose: 20 mg Documented by: Glucagon () 1 mg IM .X1 PRN PRN Reason: Hypoglycemia Guaifenesin (Robitussin) 20 ml PO Q4H PRN PRN PRN Reason: COUGH Last Admin: 11/01/19 00:12 Dose: 20 ml Documented by: Hydralazine HCl (Apresoline Iv) 10 mg IV Q4H PRN PRN PRN Reason: SBP > 160 Sodium Chloride () 1,000 mls @ 150 mls/hr IV .Q6H40M [facility] Last Admin: 11/01/19 04:35 Dose: 150 mls/hr Documented by: Ceftriaxone Sodium 2 gm/ (Sodium Chloride) 50 mls @ 100 mls/hr IV Q24 [facility] Stop: 11/08/19 10:01 Azithromycin 500 mg/ Dextrose 255 mls @ 250 mls/hr IV Q24 [facility] Stop: 11/06/19 10:01 Dextrose (Dextrose 10%-Water) 250 mls @ 999 mls/hr IV .Q16M PRN; Protocol PRN Reason: HYPOGLYCEMIA Magnesium Hydroxide (Milk Of Magnesia) 30 ml PO DAILY PRN PRN PRN Reason: Constipation Melatonin (Melatonin) 3 mg PO QHS PRN PRN PRN Reason: INSOMNIA Last Admin: 11/01/19 00:11 Dose: 3 mg Documented by: Meloxicam (Mobic) 7.5 mg PO BID [facility] Last Admin: 10/31/19 21:54 Dose: 7.5 mg Documented by: Metoprolol Tartrate (Lopressor (Beta Joseph)) 50 mg PO BID [facility] Last Admin: 10/31/19 21:54 Dose: 50 mg Documented by: Montelukast Sodium (Singulair) 10 mg PO DAILY [facility] Morphine Sulfate () 2 mg IV Q3H PRN PRN PRN Reason: Pain Score 6-10/10 Nutritional Formula (Lactose Free) (Ensure Enlive) 120 ml PO 4X/DAY [facility] Last Admin: 10/31/19 21:54 Dose: 120 ml Documented by: Ondansetron HCl (Zofran) 4 mg IV Q8H PRN PRN PRN Reason: NAUSEA/VOMITING Oxycodone HCl (Oxyir) 5 mg PO Q4H PRN PRN PRN Reason: Pain Score 4-5/10 Prochlorperazine Edisylate (Compazine Iv) 5 mg IV Q4H PRN PRN PRN Reason: Breakthrough nausea/vomiting Psyllium Hydrophilic Mucilloid (Metamucil) 1 packet PO DAILY PRN PRN PRN Reason: Constipation Senna/Docusate Sodium (Senokot-S, Sandra-Colace) 2 tablet PO BID PRN PRN PRN Reason: Constipation Sodium Chloride () 10 - 40 ml IV UD PRN PRN Reason: SALINE FLUSH Throat Lozenges (Cepacol Sore Throat Lozenge) 1 lozenge MUCOUS MEM Q2H PRN PRN PRN Reason: SORE THROAT Last Admin: 10/31/19 21:55 Dose: 1 lozenge Documented by: STROKE Vital Signs/Narrative: Vital Signs Temp Pulse Resp BP Pulse Ox 11/01/19 07:23 90 20 H 93 11/01/19 05:35 65 11/01/19 04:30 98.9 F 84 20 H 128/90 H 97 Medical Necessity - Tobacco Use Smoking Status: Former smoker Tobacco Use: Non-smoker Assessment/Plan All Active Problems Suspected 2019 novel coronavirus infection (Acute) Bilateral upper lobe community acquired pneumonia (Acute) Sepsis (Acute) Sinus tachycardia seen on conveyor monitor (Acute)
[2019-11-01] MEDS: Metoprolol Tartrate 50 MG Tablet PO (09:59)
[2019-11-01] MEDS: Meloxicam 7.5 MG Tablet PO (10:05)
[2019-11-01] MEDS: Enoxaparin 40 MG/0.4 ML Syringe SC (10:05)
[2019-11-01] MEDS: Famotidine 20 MG Tablet PO (10:05)
[2019-11-01] MEDS: Montelukast 10 MG Tablet PO (10:05)
--- NOTE | 2019-11-01 11:12 | PCM.DC ---
- Discharge Diagnoses Current Active Problems: Current Active and Chronic Problems Suspected 2019 novel coronavirus infection (Acute) Bilateral upper lobe community acquired pneumonia (Acute) Sepsis (Acute) Sinus tachycardia seen on podiatry professor (Acute) Former tobacco use (Chronic) GERD (gastroesophageal reflux disease) (Chronic) ADHD (Chronic) You will use the following diet at home:: No restrictions Your food should be the consistency of: Regular Discharge Activity: - - Self isolate for 14 days pending results of COVID 19 test Call your doctor if you observe: Fever of 101 or Higher, Shortness of breath, Chest pain Allergies/Adverse Reactions: Allergies No Known Allergies Allergy (Unverified 10/31/19 14:03) Medications to take at Discharge cholecalciferol (vitamin D3) 1,250 mcg (50,000 unit) capsule 50,000 unit PO MO 09/20/19 methylphenidate HCl 10 mg tablet 10 mg PO BID 09/20/19 metoprolol tartrate 50 mg tablet 50 mg PO BID 09/20/19 Albuterol IH (ProAir) [Proair Hfa] 2 puff INHALATION Q4H PRN PRN 10/31/19 Meloxicam [Mobic] 7.5 mg PO BID 10/31/19 Montelukast [Singulair] 10 mg PO DAILY 10/31/19 Omeprazole [Prilosec] 20 mg PO DAILY 10/31/19 Primary Care Physician: Myla Nunez [NON-STAFF] - Test Results: Test results from this visit will be discussed in further detail at your follow-up appointment, if applicable. Proposed Discharge Date: 11/01/19
--- NOTE | 2019-11-01 11:16 | DS.PCM_ITS ---
Discharge Date and Diagnosis - Problem List Patient Problems: Active and Suspected Problems Suspected 2018 novel coronavirus infection (Acute) Bilateral upper lobe community acquired pneumonia (Acute) Sepsis (Acute) Sinus tachycardia seen on monitor worker (Acute) Date of Admission: 10/31/19 Date of Discharge: 11/01/19 - Primary Discharge Diagnosis Active and Suspected Problems Suspected 2018 novel coronavirus infection (Acute) Bilateral upper lobe community acquired pneumonia (Acute) Sepsis (Acute) Sinus tachycardia seen on monitor worker (Acute) - Secondary Discharge Diagnosis Chronic Problems Hypertension (Chronic) Former tobacco use (Chronic) GERD (gastroesophageal reflux disease) (Chronic) ADHD (Chronic) Hospital Course and Treatment Imaging Results: 11/01/19 05:55 Chest 1 View (Portable) [RAD] AM (NON MEDS) Summary of Care Provided: The patient is a 49 year old M medical history single for hypertension allergic rhinitis asthma who presented with progressive shortness of breath 1. Acute sepsis secondary to suspected acute viral syndrome secondary to suspected COVID 19. Imaging studies demonstrated patchy infiltrates in both upper lobes worse on the right side. Admitted to regular nursing floor managed with Rocephin and Zithromax. COVID 19 test was sent. Patient did report si gnificant improvement in his condition a day following his admission he therefore requested to be discharged home. Patient was instructed to self isolate on discharge the results of her COVID 19 test is back and when contacted by the [facility] department 2. Hyponatremia Do suspect some sort of SIADH from patient above lung pathology sodium levels did improve 3. Hypertension ~ blood pressure controlled, home medications continued with dose adjustment as needed 4. ADHD ?Patient is on methylphenidate. continued on discharge 5. Allergic rhinitis ?Patient is on singular 6. Adenitis ?Patient transaminase levels were improving at the time of discharge plan is for patient to follow-up with PCP for repeat lab work when stable Patient Problems: Active and Suspected Problems Suspected 2019 novel coronavirus infection (Acute) Bilateral upper lobe community acquired pneumonia (Acute) Sepsis (Acute) Sinus tachycardia seen on monitor worker (Acute) - Physical Exam Vitals/I&O's: Vital Signs Temp Pulse Resp BP Pulse Ox 99.2 F H 98 20 H 156/91 H 97 11/01/19 10:10 11/01/19 10:10 11/01/19 07:23 11/01/19 10:10 11/01/19 10:10 Oxygen Flow Rate (L/min) 2 Oxygen Delivery Method Room Air Weight: 94.347 kg Body Mass Index (BMI) 29.0 Intake and Output for Last 24 Hours 10/30/19 10/31/19 11/01/19 23:59 23:59 23:59 Intake Total 1184.17 / 1184.17 4615.0 / 4615.0 Output Total 600 / 600 Balance 1184.17 / 1184.17 4015.0 / 4015.0 General: Alert Neck: Supple Lungs: Diminished Cardiovascular: Regular rate, Regular Rhythm Extremities: No clubbing Neurological: Neuro grossly intact Microbiology Past 72 Hours 10/31/19 19:25 Mucosa - Nasopharyngeal Respiratory Panel (PCR) - Final 10/31/19 16:49 Urine, Clean Catch Streptococcus pneumoniae Antigen (M - Final 10/31/19 16:49 Urine, Clean Catch Legionella Antigen - Final 10/31/19 14:28 Mucosa - Nose Influenza Types A,B Direct FA (BJ) - Final Laboratory Results 10/31/19 14:25: WBC 13.4 H, RBC 4.34 L, Hgb 15.4, Hct 43.2, MCV 99.5 H, MCH 35.5 H, MCHC 35.6, RDW Std Deviation 44.8 H, RDW Coeff of Zuleika 12.3, Plt Count 324, MPV 9.4, Immature Gran % (Auto) 0.900, Neut % (Auto) 84.2 H, Lymph % (Auto) 8.7 L, [place] % (Auto) 5.7, Eos % (Auto) 0.3, Baso % (Auto) 0.2, Absolute Neuts (auto) 11.3 H, Absolute Lymphs (auto) 1.17, Nucleated RBC % 0 10/31/19 14:25: PT 13.7, INR 1.1, APTT 29.1 10/31/19 14:25: Sodium 128 L, Potassium 3.6, Chloride 91 L, Carbon Dioxide 29.0, Anion Gap 8, BUN 14, Creatinine 0.89, Estim Creat Clear Calc 108.11, Est GFR (MDRD) Af Amer 117, Est GFR (MDRD) Non-Af 97, BUN/Creatinine Ratio 15.7, Glucose 113 H, Calcium 9.6, Total Bilirubin 2.50 H, AST 170 H, ALT 123 H, Alkaline Phosphatase 210 H, Total Protein 8.3 H, Albumin 3.4, Globulin 4.9 H, Albumin/Globulin Ratio 0.7 L 10/31/19 14:25: Lactic Acid 1.3 10/31/19 16:49: Urine Color Yellow, Urine Clarity Clear, Urine pH 6.5, Ur Specific [place] 1.005, Urine Protein 30 H, Urine Glucose (UA) Normal, Urine Ketones 15 H, Urine Occult Blood Negative, Urine Nitrite Negative, Urine Bilirubin 1 H, Urine Urobilinogen 4 H, Ur Leukocyte Esterase 25 H, Urine RBC 0 SEEN, Urine WBC 0 SEEN, Ur Squamous Epith Cells 0 SEEN, Urine Bacteria RARE, Urine Mucus 0 SEEN 10/31/19 18:42: Ferritin 2045 H, Lactate Dehydrogenase 361 H, Troponin I < 0.015, C-React Prot Ext Range 220.00 H 10/31/19 18:42: Procalcitonin 0.51 H 11/01/19 06:55: WBC 11.1 H, RBC 3.85 L, Hgb 13.8, Hct 39.1 L, MCV 101.6 H, MCH 35.8 H, MCHC 35.3, RDW Std Deviation 46.1 H, RDW Coeff of Zuleika 12.5, Plt Count 277, MPV 9.5, Immature Gran % (Auto) 0.800, Neut % (Auto) 79.3 H, Lymph % (Auto) 12.2 L, [place] % (Auto) 6.8, Eos % (Auto) 0.5, Baso % (Auto) 0.4, Absolute Neuts (auto) 8.8 H, Absolute Lymphs (auto) 1.35, Nucleated RBC % 0 11/01/19 06:55: Sodium 132 L, Potassium 3.9, Chloride 96 L, Carbon Dioxide 27.0, Anion Gap 9, BUN 11, Creatinine 0.81, Estim Creat Clear Calc 118.79, Est GFR (MDRD) Af Amer 130, Est GFR (MDRD) Non-Af 108, BUN/Creatinine Ratio 13.6, Glucose 110 H, Calcium 8.6, Total Bilirubin 1.60 H, AST 151 H, ALT 134 H, Alkaline Phosphatase 195 H, Total Protein 6.9, Albumin 2.7 L, Globulin 4.2, Albumin/Globulin Ratio 0.6 L Current Medications Acetaminophen (Tylenol) 650 mg PO Q6H PRN PRN PRN Reason: Pain Score 1-10/Temp > 100.7 F Last Admin: 10/31/19 21:54 Dose: 650 mg Documented by: Al Hydroxide/Mg Hydroxide (Mylanta Ii) 30 ml PO Q6H PRN PRN PRN Reason: Gastric Burning Albuterol Sulfate (Ventolin Aerosols) 2.5 mg INHALATION Q2H PRN PRN PRN Reason: dyspnea, wheezing Albuterol/Ipratropium (Duoneb) 3 ml INHALATION Q4HWA.RT [facility] Last Admin: 11/01/19 07:29 Dose: 3 ml Documented by: Enoxaparin Sodium (Lovenox) 40 mg SC DAILY [facility] Last Admin: 11/01/19 10:05 Dose: 40 mg Documented by: Famotidine (Pepcid) 20 mg PO BID [facility] Last Admin: 11/01/19 10:05 Dose: 20 mg Documented by: Glucagon () 1 mg IM .X1 PRN PRN Reason: Hypoglycemia Guaifenesin (Robitussin) 20 ml PO Q4H PRN PRN PRN Reason: COUGH Last Admin: 11/01/19 00:12 Dose: 20 ml Documented by: Hydralazine HCl (Apresoline Iv) 10 mg IV Q4H PRN PRN PRN Reason: SBP > 160 Sodium Chloride () 1,000 mls @ 150 mls/hr IV .Q6H40M [facility] Last Infusion: 11/01/19 11:07 Dose: 150 mls/hr Documented by: Ceftriaxone Sodium 2 gm/ (Sodium Chloride) 50 mls @ 100 mls/hr IV Q24 [facility] Stop: 11/08/19 10:01 Last Infusion: 11/01/19 10:25 Dose: Infused Documented by: Azithromycin 500 mg/ Dextrose 255 mls @ 250 mls/hr IV Q24 [facility] Stop: 11/06/19 10:01 Last Infusion: 11/01/19 11:07 Dose: Infused Documented by: Dextrose (Dextrose 10%-Water) 250 mls @ 999 mls/hr IV .Q16M PRN; Protocol PRN Reason: HYPOGLYCEMIA Magnesium Hydroxide (Milk Of Magnesia) 30 ml PO DAILY PRN PRN PRN Reason: Constipation Melatonin (Melatonin) 3 mg PO QHS PRN PRN PRN Reason: INSOMNIA Last Admin: 11/01/19 00:11 Dose: 3 mg Documented by: Meloxicam (Mobic) 7.5 mg PO BID [facility] Last Admin: 11/01/19 10:05 Dose: 7.5 mg Documented by: Metoprolol Tartrate (Lopressor (Beta Joseph)) 50 mg PO BID [facility] Last Admin: 11/01/19 09:59 Dose: 50 mg Documented by: Montelukast Sodium (Singulair) 10 mg PO DAILY [facility] Last Admin: 11/01/19 10:05 Dose: 10 mg Documented by: Morphine Sulfate () 2 mg IV Q3H PRN PRN PRN Reason: Pain Score 6-10/10 Nutritional Formula (Lactose Free) (Ensure Enlive) 120 ml PO 4X/DAY [facility] Last Admin: 11/01/19 10:26 Dose: Not Given Documented by: Ondansetron HCl (Zofran) 4 mg IV Q8H PRN PRN PRN Reason: NAUSEA/VOMITING Oxycodone HCl (Oxyir) 5 mg PO Q4H PRN PRN PRN Reason: Pain Score 4-5/10 Prochlorperazine Edisylate (Compazine Iv) 5 mg IV Q4H PRN PRN PRN Reason: Breakthrough nausea/vomiting Psyllium Hydrophilic Mucilloid (Metamucil) 1 packet PO DAILY PRN PRN PRN Reason: Constipation Senna/Docusate Sodium (Senokot-S, Sandra-Colace) 2 tablet PO BID PRN PRN PRN Reason: Constipation Sodium Chloride () 10 - 40 ml IV UD PRN PRN Reason: SALINE FLUSH Throat Lozenges (Cepacol Sore Throat Lozenge) 1 lozenge MUCOUS MEM Q2H PRN PRN PRN Reason: SORE THROAT Last Admin: 10/31/19 21:55 Dose: 1 lozenge Documented by: Discharge Diet: No Restrictions Discharge Activity: - - Self isolate for 14 days pending results of COVID 19 test Call your doctor if you observe: Fever of 101 or Higher, Shortness of breath, Chest pain Home Medications: Medications to take at Discharge cholecalciferol (vitamin D3) 1,250 mcg (50,000 unit) capsule 50,000 unit PO MO 09/20/19 methylphenidate HCl 10 mg tablet 10 mg PO BID 02/14/20 metoprolol tartrate 50 mg tablet 50 mg PO BID 09/20/19 Albuterol IH (ProAir) [Proair Hfa] 2 puff INHALATION Q4H PRN PRN 10/31/19 Meloxicam [Mobic] 7.5 mg PO BID 10/31/19 Montelukast [Singulair] 10 mg PO DAILY 10/31/19 Omeprazole [Prilosec] 20 mg PO DAILY 10/31/19 Azithromycin [Zithromax] 500 mg PO DAILY #5 tab 11/01/19 Cefdinir [Omnicef [equiv]] 300 mg PO Q12H #14 cap 11/01/19 Following Prescrptions Were Given to Patient: Cefdinir [Omnicef [equiv]] 300 mg PO Q12H #14 cap Transmission Status: Pending to [facility] #30 Azithromycin [Zithromax] 500 mg PO DAILY #5 tab Transmission Status: Pending to [facility] Primary Care Physician: Myla Nunez [NON-STAFF] - Disposition: Home Minutes spent on discharge:: 35 Patient Condition:: Stable Medical Necessity - Tobacco Use Smoking Status: Former smoker Tobacco Use: Non-smoker Meaningful Use Info Meaningful Use Diagnoses (Choose all that apply): None applicable Inpatient E&M: 57176 Disch Hosp
--- NOTE | 2019-11-01 11:20 | CASEMGMT ---
RN CM called patient in room for initial transition planning/care coordination assessment. RN CAROL introduced self and role at [facility]. Patient is alert and oriented. Patient willing to participate in assessment and is able to answer all questions appropriately. Care providers, pharmacy, and demographics verified. Patient wishes to discharge home, denies need for home health at this time. Patient states he has no further needs or concerns at this time. CM to follow for discharge planning needs that may arise. PCP: [facility] [employer] TECHNICIAN Specialists: None Preferred Pharmacy: [facility] Insurance: [employer] Prescription Benefit: yes Living Will/HPOA: none LNOK: parents Living Arrangements: Patient lives with parents [facility] [address] [facility]. Patient is independent and able to ambulate stairs. Patient has his own room for self isolation. Patient states parents are able to help with meals. Transportation: self/parents DME/HHC: Patient denies need for DME or HHC. Disposition Plan: Patient to discharge home with family support and follow-up plans in place. Melinda REYES, RN, CM
== END 2019-11-01 12:55 | disposition home or self-care (01) | DRG 720 ==
LOC: ED 15:41 → MS2 16:23
PROVIDERS: Admitting Provider Family Medicine; Emergency Provider Emergency Medicine; PCP Nurse Practitioner Family; Visit Provider Internal Medicine
DX: A41.89 Other specified sepsis (principal); B97.89 Other viral agents as the cause of diseases classified elsewhere; E87.1 Hypo-osmolality and hyponatremia; J18.9 Pneumonia, unspecified organism; J45.909 Unspecified asthma, uncomplicated; F90.9 Attention-deficit hyperactivity disorder, unspecified type; I10 Essential (primary) hypertension; K21.9 Gastro-esophageal reflux disease without esophagitis; R00.0 Tachycardia, unspecified; R74.0 Nonspecific elevation of levels of transaminase and lactic acid dehydrogenase [LDH]; Z87.891 Personal history of nicotine dependence
CPT/HCPCS: 36415; 71045; 80053; 81001; 82728; 83605; 83615; 84145; 84484; 85025; 85610; 85730; 86140; 87040; 87086; 87449; 87633; 87804; 93005; 94640; 97802; 99251; 99285; J7030; A4216; G0463; J0696

== ENCOUNTER 2020-01-24 08:10 | Day surgery (SDC) | payer MEDICAID, SELFPAY ==
[2019-10-31 17:55] VITALS: BMI 29.0
[2020-01-24] VITALS (7 sets, daily range): BP systolic 128–151; BP diastolic 89–98; PULSE 58–82; RESP 14–16; TEMP 36.1–36.4; O2SAT 93–99; BMI 31.1
[2020-01-24] MEDS: Lactated Ringers 1,000 ML 100 ML IV ×2 (09:01→11:49)
[2020-01-24] MEDS: Cefazolin 2 GM in 0.9% Normal Saline 100 ML IV (09:24)
[2020-01-24] MEDS: Bupiv/Epi 0.5% Mpf 30 ML Vial (09:51)
--- NOTE | 2020-01-24 10:23 | PCM.OPRPT ---
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
[2020-01-24] MEDS: HYDROcodone Bitartrate/Apap 5/325 Tablet PO (11:56)
== END 2020-01-24 12:30 | disposition home or self-care (01) ==
LOC: SDC 08:11 → AC 08:14
PROVIDERS: Anesthesiology; Referring Provider Orthopaedic Surgery; Visit Provider Orthopaedic Surgery
PROC: (CPT 29827; principal; 2020-01-24 09:20)
DX: M75.02 Adhesive capsulitis of left shoulder (principal); M25.812 Other specified joint disorders, left shoulder; M19.012 Primary osteoarthritis, left shoulder; Z11.59 Encounter for screening for other viral diseases
CPT/HCPCS: 01630; 29824; 64415; 87635; G2023; J7120; J2405; U0003

== ENCOUNTER → 2020-03-31 09:34 | Outpatient (CLI) | payer MEDICAID, SELFPAY ==
[2020-01-24 08:42] VITALS: BMI 31.1
--- NOTE | 2020-03-31 09:38 | MRI_ITS ---
STUDY: MRI LUMBAR SPINE WITHOUT CONTRAST REASON FOR EXAM: Male, 50 years old. spondylolisthesis, RIGHT leg ache,burning,numbness TECHNIQUE: Standardized fat and water weighted pulse sequences were obtained in the sagittal and axial planes. COMPARISON: None FINDINGS: T12-L1: Normal endplates. Normal disc height, hydration and morphology. Normal bilateral facet joints. Normal central canal and bilateral lateral recesses. Normal bilateral intervertebral neural foramina. Normal lumbar lordosis. There is no substantial scoliosis. Normal conus medullaris that terminates at the L1. L1-2: Normal endplates. Normal disc height, hydration and morphology. Normal bilateral facet joints. Normal central canal and bilateral lateral recesses. Normal bilateral intervertebral neural foramina. L2-3: Worsening disc desiccation with a mild bilobed disc protrusion produces mild spinal stenosis but no neural foraminal stenosis. L3-4: Mild bilateral facet hypertrophy with fluid in the facet joints consistent with instability and mild ligament flavum hypertrophy. No change in the 2 mm retrolisthesis of L3 on L4 with a mild bilobed disc protrusion which produces moderate spinal stenosis and mild bilateral neural foraminal stenosis. L4-5: Mild bilateral facet hypertrophy and moderate ligament flavum hypertrophy. No change in the 2 mm retrolisthesis of L4 and L5 with a moderate broad disc protrusion which produces moderate spinal stenosis and mild bilateral neural foraminal stenosis. 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 No change in the 5 mm of anterolisthesis of L5 on S1 consistent with grade 1 spondylolisthesis. No change in the mild broad disc protrusion which produces mild spinal stenosis but severe bilateral neural foraminal stenosis with effacement of the L5 nerve roots bilaterally. Normal visualized sacral ala. Normal visualized paraspinous soft tissue structures. MRI/Spine Lumbar (Routine) IMPRESSION: No change from 04/10/2009 Electronically Signed: Troy Tam MD at 13:59 EDT Tel , Service support ,
== END ==
PROVIDERS: Referring Provider Physician Assistant; Visit Provider Physician Assistant
DX: M43.16 Spondylolisthesis, lumbar region (principal)
CPT/HCPCS: 72148

== ENCOUNTER → 2020-04-23 08:12 | Outpatient (CLI) | payer MEDICAID, SELFPAY ==
[2020-01-24 08:42] VITALS: BMI 31.1
[2020-04-23 08:33] LABS: Absolute Neutrophil Count 4.3 X10^3/uL (2.0-7.7); Basophil# 0.08 X10^3/uL; Eosinophil# 0.12 X10^3/uL; Eosinophils% 1.5 % (0-5); Hematocrit 38.2 % (40-54); Lymphocyte % 35.1 % (19-41); Mean Corpuscular Hgb 31.9 pg (27.0-32.0); Mean Corpuscular Volume 93.6 fL (80-94); Mean Platelet Vol. 9.4 fl (6.2-12.0); Monocyte# 0.67 X10^3/uL; Monocyte% 8.4 % (0-10); NRBC Flagged by Analyzer 0 % (0-5); Neutrophil # 4.27 X10^3/uL (2.7-7.7); Neutrophil % 53.5 % (47-70); Platelet Count 321 K/mm3 (150-450); RBC Distribution Width CV 12.1 % (11.6-14.6); RBC Distribution Width SD 41.7 fl (35.1-43.9); Red Blood Count 4.08 M/mm3 (4.6-6.2)
[2020-04-23 09:31] LABS: ALB/GLOB Ratio 1.2 RATIO (0.9-2.4); AST(SGOT) 23 U/L (15-37); Alanine Aminotransfer ALT/SGPT 28 U/L (16-61); Albumin, Serum 4.2 g/dL (3.2-5.0); Alkaline Phosphatase 115 U/L (45-117); Anion Gap 7 (5-15); BUN 14 mg/dL (7-18); BUN/Creat Ratio 16.2 RATIO (10-20); Calcium,Total 9.1 mg/dL (8.5-10.1); Chloride 101 mmol/L (98-107); Cholesterol 270 mg/dL (200); Creatinine, Serum 0.86 mg/dL (0.70-1.30); EST Glomerular Filtration Rate 100 mL/min (>60); Est Glom Filt Rate - Afr Amer 121 mL/min (>60); Globulin 3.5 g/dL (2.2-4.2); Glucose 112 mg/dL (74-106); High Density Lipoprotein 43 mg/dL; Potassium 3.7 mmol/L (3.5-5.1); Protein, Total 7.7 g/dL (6.4-8.2); Sodium Level 138 mmol/L (136-145); Triglycerides 159 mg/dL; Very Low Density Lipoprotein 32 mg/dL (5-40)
== END ==
DX: I10 Essential (primary) hypertension (principal); E78.5 Hyperlipidemia, unspecified; R94.5 Abnormal results of liver function studies; E55.9 Vitamin D deficiency, unspecified
CPT/HCPCS: 36415; 80053; 80061; 85025

== ENCOUNTER 2020-07-24 10:49 | Day surgery (SDC) | payer MEDICAID, SELFPAY ==
[2020-01-24 08:42] VITALS: BMI 31.1
[2020-07-24 11:14] VITALS: BP 146/106; PULSE 73; RESP 16; TEMP 36.4; O2SAT 99; BMI 29.8
[2020-07-24] MEDS: 0.9% Normal Saline (Pres. free 10 ML Vial (11:54)
[2020-07-24] MEDS: Triamcinolone Acetonide 40 MG/ML Vial (12:20)
[2020-07-24] MEDS: Bupivacaine 0.25% 30 ML Vial (12:20)
[2020-07-24] MEDS: Lidocaine 1% (20 ml mdv) 20 ML Vial (12:20)
--- NOTE | 2020-07-24 12:26 | RAD_ITS ---
PROCEDURE: Bilateral L5-S1 transforaminal epidural steroid injection. DATE OF EXAMINATION: 07/24/2020. INDICATION: Male, 50 years old. Chronic low back pain. FLUOROSCOPY TIME (if supplied): (30.5 seconds) minutes/seconds. One view was obtained. Intraoperative imaging provided for bilateral L5-S1 transforaminal epidural steroid injection. RAD/Spine 1 View Any Level IMPRESSION: Intraoperative imaging provided for bilateral L5-S1 transforaminal epidural steroid injection. Electronically Signed: Linus Almanzar, at 13:42 EST , Service support ,
[2020-07-24 13:01] VITALS: BP 146/106; BP 153/118; PULSE 71; RESP 16; TEMP 36.7; O2SAT 97
== END 2020-07-24 13:05 | disposition home or self-care (01) ==
LOC: SDC 10:51 → AC 10:52
PROVIDERS: Referring Provider Orthopaedic Surgery; Visit Provider Orthopaedic Surgery
PROC: 3E0U3GC Introduction of Other Therapeutic Substance into Joints, Percutaneous Approach (ICD-10-PCS; CPT 20610; principal; 2020-07-24 12:25)
DX: M48.061 Spinal stenosis, lumbar region without neurogenic claudication (principal); Z79.899 Other long term (current) drug therapy
CPT/HCPCS: 64483; 72020; J3490

== ENCOUNTER → 2020-08-12 07:51 | Outpatient (CLI) | payer MEDICAID, SELFPAY ==
[2020-07-24 11:14] VITALS: BMI 29.8
[2020-08-12 08:15] LABS: Absolute Neutrophil Count 4.2 X10^3/uL (2.0-7.7); Basophil# 0.07 X10^3/uL; Basophil% 0.9 % (0-1); Eosinophil# 0.03 X10^3/uL; Eosinophils% 0.4 % (0-5); Hematocrit 44.6 % (40-54); Hemoglobin 14.9 g/dL (13.0-16.5); Lymphocyte % 36.5 % (19-41); Mean Corp Hgb Conc 33.4 g/dL (32-36); Mean Corpuscular Hgb 32.7 pg (27.0-32.0); Mean Corpuscular Volume 97.8 fL (80-94); Mean Platelet Vol. 8.6 fl (6.2-12.0); Monocyte# 0.68 X10^3/uL; Monocyte% 8.6 % (0-10); NRBC Flagged by Analyzer 0 % (0-5); Neutrophil # 4.22 X10^3/uL (2.7-7.7); Neutrophil % 53.1 % (47-70); Platelet Count 307 K/mm3 (150-450); Red Blood Count 4.56 M/mm3 (4.6-6.2); White Blood Count 7.9 K/mm3 (4.4-11.0)
[2020-08-12 08:47] LABS: ALB/GLOB Ratio 1.3 RATIO (0.9-2.4); AST(SGOT) 23 U/L (15-37); Alanine Aminotransfer ALT/SGPT 32 U/L (16-61); Albumin, Serum 4.7 g/dL (3.2-5.0); Alkaline Phosphatase 104 U/L (45-117); Anion Gap 3 (5-15); BUN 19 mg/dL (7-18); BUN/Creat Ratio 18.6 RATIO (10-20); Calcium,Total 9.2 mg/dL (8.5-10.1); Chloride 100 mmol/L (98-107); Cholesterol 384 mg/dL (200); Creatinine, Serum 1.02 mg/dL (0.70-1.30); EST Glomerular Filtration Rate 82 mL/min (>60); Est Glom Filt Rate - Afr Amer 100 mL/min (>60); Globulin 3.5 g/dL (2.2-4.2); Glucose 113 mg/dL (74-106); High Density Lipoprotein 72 mg/dL; Protein, Total 8.2 g/dL (6.4-8.2); Sodium Level 135 mmol/L (136-145); Triglycerides 218 mg/dL; Very Low Density Lipoprotein 44 mg/dL (5-40)
[2020-08-12 10:09] LABS: Vitamin D,25 Hydroxy 20.7 ng/mL
== END ==
DX: I10 Essential (primary) hypertension (principal); E78.5 Hyperlipidemia, unspecified; E55.9 Vitamin D deficiency, unspecified
CPT/HCPCS: 36415; 80053; 80061; 82306; 85025

== ENCOUNTER 2020-09-03 10:17 | Day surgery (SDC) | payer MEDICAID, SELFPAY ==
[2020-09-03 10:41] VITALS: BMI 29.0
--- NOTE | 2020-09-03 11:13 | DCINST_ITS ---
Discharge Diet: No Restrictions Discharge Activity: Return to Normal Activity Return to work on:: 09/03/20 May resume sexual activity in: No Restrictions Weight Bearing Status: Weight bearing as tolerated Call your doctor if your incision/area has: Continuous Slow Oozing, Sudden Increased Bleeding, Increased Pain/ Swelling, Increased Redness, Foul Smelling Discharge, Swelling at the incision site Call your doctor if you observe: Fever of 101 or Higher, Coldness, Increased Pain, Numbness or Tingling, Change in Color, Inability to urinate, Inability to have a bowel movement, Using more than one pad per hour, Shortness of breath, Dizziness, Fainting spells, Swelling in the ankles, Chest pain, Prolonged hiccoughing, Increased palpitations (irregular heartbeat), Calf discomfort, Uncontrolled pain Allergies/Adverse Reactions: Allergies No Known Allergies Allergy (Unverified 01/24/20 08:40) Medications to take at Discharge cholecalciferol (vitamin D3) 1,250 mcg (50,000 unit) capsule 50,000 unit PO MO 09/20/19 methylphenidate HCl 10 mg tablet 10 mg PO BID 09/20/19 metoprolol tartrate 50 mg tablet 50 mg PO BID 09/20/19 Albuterol IH (ProAir) [Proair Hfa] 2 puff INHALATION Q4H PRN PRN 10/31/19 Meloxicam [Mobic] 7.5 mg PO BID 10/31/19 Montelukast [Singulair] 10 mg PO DAILY 10/31/19 Omeprazole [Prilosec] 20 mg PO DAILY 10/31/19 Primary Care Physician: [facility] Myla Medrano [Primary Care Provider] - Test Results: Test results from this visit will be discussed in further detail at your follow- up appointment, if applicable. Please Follow Up With: Drake Warren DO - as scheduled
--- NOTE | 2020-09-03 11:41 | RAD_ITS ---
STUDY: X-RAY - LUMBAR SPINE REASON FOR EXAM: Male, 50 years old. L5-S1 TRANSFORAMINAL INJECTION TECHNIQUE: Single intraoperative view(s) of the lumbar spine were obtained. COMPARISON: None FINDINGS: Intraoperative imaging provided for right L5-S1 transforaminal injection. RAD/Spine 1 View Any Level IMPRESSION: Intraoperative imaging provided for right L5-S1 transforaminal injection. Electronically Signed: Linus Almanzar MD at 9:02 EST , Service support ,
[2020-09-03] MEDS: Triamcinolone Acetonide 40 MG/ML Vial (11:48)
[2020-09-03] MEDS: Bupivacaine 0.25% 30 ML Vial (11:48)
[2020-09-03] MEDS: Sodium Bicarbonate 50 MEQ/50 ML Vial (11:48)
[2020-09-03] MEDS: Lidocaine 1% (20 ml mdv) 20 ML Vial (11:48)
[2020-09-03 12:04] VITALS: BP 130/105; PULSE 70; RESP 16; TEMP 36.8; O2SAT 100
--- NOTE | 2020-09-03 15:57 | PCM.OPRPT ---
Problem List (1) Lumbar stenosis without neurogenic claudication Status: Acute Report of Operation Date of Procedure: 09/03/20 Pre-Operative Diagnosis: Lumbar stenosis without neurogenic claudication Post-Operative Diagnosis: Lumbar stenosis without neurogenic claudication Surgery/Procedure Performed:: Right L5-S1 transforaminal epidural steroid injection Description of Surgical Findings:: The patient was seen preop in the holding area. Risk and benefits of the procedure were explained to the patient and informed consent was obtained. The patient was transported to the procedure room, positioned prone on the fluoroscopy table. The back was prepped and draped in the usual sterile fashion. Sterile technique was used throughout. Under fluoroscopic guidance in the AP view, vertebral bodies were identified. The following sequence of events was performed independently prior to needle insertion. Using cephalocaudad tilt, superior endplates were squared and ipsilateral obliquing was performed. The target point is lateral to the lamina and below the pedicle. At no time did the needle cross the line formed medially by the pedicles. Corresponding skin and subcutaneous tissue needle entry sites were anesthetized with a 27-gauge 1-1/2 inch needle using 1% lidocaine, 5 mL per level. Subsequently, a 22-gauge 5 inch spinal needle with a curved tip was advanced via a subpedicular approach to enter the neuroforamen at right L5-S1 respectively. Position was confirmed in AP, oblique, and lateral views. Subsequently an AP view, contrast was injected, positive epidural spread was noted. No intravascular or intrathecal uptake was noted. After negative aspiration, bupivacaine 0.25% 1 mL +1 mL of Kenalog 40 mg/mL for a total volume of 2 mL was injected in 1 mL aliquots to each level respectively. Thendara were removed. No complications were noted. The patient was transported to recovery and monitored until discharge criteria were met. Type of Anesthesia:: Local Estimated Blood Loss (mL): None - Complications None
== END 2020-09-03 12:14 | disposition home or self-care (01) ==
LOC: SDC 10:18 → AC 10:18
PROVIDERS: Referring Provider Orthopaedic Surgery; Visit Provider Orthopaedic Surgery
PROC: 3E0S3BZ Introduction of Anesthetic Agent into Epidural Space, Percutaneous Approach (ICD-10-PCS; principal; 2020-09-03 11:40)
DX: M48.061 Spinal stenosis, lumbar region without neurogenic claudication (principal); G89.29 Other chronic pain; M47.26 Other spondylosis with radiculopathy, lumbar region; M51.36 Other intervertebral disc degeneration, lumbar region; M46.96 Unspecified inflammatory spondylopathy, lumbar region; I10 Essential (primary) hypertension; E78.00 Pure hypercholesterolemia, unspecified; J45.909 Unspecified asthma, uncomplicated; M19.90 Unspecified osteoarthritis, unspecified site; F32.9 Major depressive disorder, single episode, unspecified; E66.3 Overweight; Z68.29 Body mass index [BMI] 29.0-29.9, adult; Z79.1 Long term (current) use of non-steroidal anti-inflammatories (NSAID); Z79.51 Long term (current) use of inhaled steroids; Z79.899 Other long term (current) drug therapy; Z87.891 Personal history of nicotine dependence
CPT/HCPCS: 64483; 72020

== ENCOUNTER → 2021-03-25 12:57 | Outpatient (CLI) | payer MEDICAID, SELFPAY ==
[2021-03-25 14:36] LABS: PSA,Total - Annual Screen 2.76 ng/mL (0.00-4.00)
== END ==
DX: F90.9 Attention-deficit hyperactivity disorder, unspecified type (principal); Z12.5 Encounter for screening for malignant neoplasm of prostate
CPT/HCPCS: 36415; 84153; G0103

== ENCOUNTER 2021-04-13 17:28 | Emergency (ER) | payer MEDICAID, SELFPAY ==
[2021-04-13] VITALS (8 sets, daily range): BP systolic 74–147; BP diastolic 56–97; PULSE 66–88; RESP 10–18; TEMP 36.5–36.7; O2SAT 96–97; BMI 26.9
--- NOTE | 2021-04-13 17:45 | ED.RN ---
IV AND BLOODWORK STARTED IN TRIAGE. VERBAL ORDER RECIEVED FOR 1LITER BOLUS OF NORMAL SALINE.
[2021-04-13] MEDS: 0.9% Normal Saline 1,000 ML 1000 ML IV (18:10)
--- NOTE | 2021-04-13 18:25 | RAD_ITS ---
STUDY: X-RAY CHEST REASON FOR EXAM: Male, 51 years old. Syncope TECHNIQUE: Frontal view of the chest COMPARISON: 11/01/19 FINDINGS: The lungs are clear. There are no pleural effusions. There is no pneumothorax. The heart is normal in size. The visualized osseous structures are within normal limits. RAD/Chest 1 View (Portable) IMPRESSION: No acute thoracic pathology. Electronically Signed: Darshan Bean MD at 20:15 EDT Tel , Service support ,
--- NOTE | 2021-04-13 18:25 | EKG12_ITS ---
Test Reason : SYNCOPE Blood Pressure : / mmHG Vent. Rate : 067 BPM Atrial Rate : 067 BPM P-R Int : 156 ms QRS Dur : 098 ms QT Int : 456 ms P-R-T Axes : 065 041 059 degrees QTc Int : 481 ms Normal sinus rhythm Prolonged QT Abnormal ECG Confirmed by ANDI BURNS, PAU ([id number]), editor managing newspaper KATIE CRANE ([id number]) on 04/15/2021 9:18:09 AM Referred By: ROSALINA Confirmed By:PAU ESCAMILLA MD
--- NOTE | 2021-04-13 19:16 | EDS_ITS ---
HPI History of Present Illness Chief Complaint: Syncope Informant: patient Narrative Narrative: Patient is a 51-year-old male with history of GERD, ADHD, chronic back pain and hypertension presenting after syncopal episode. Patient was at the [facility] where he was having a checkup and he had a syncopal episode. Patient notes he been feeling lightheaded today. He did take a tizanidine this morning which has been causing him to be lightheaded as his back pain was acting up. Patient also notes he had decreased oral intake lately because his acid reflux is been worse. He did throw up bile today. He is been having loose bowel movements but no blood or black in his stool. Patient states he passed out when he went to stand up at the office. He kind of slumped over and he states he did not hit his head. He was started on Vyvanse 2 months ago and since then he has had poor sleep and decreased appetite. He did recently start at [facility] so he notes that the medication is helping him with his concentration. He denies any associated chest pain or shortness of breath. Denies any fever or chills. He states he was tested for Covid today at this clinic and was negative. He has had his Covid vaccine. [facility] Home Medications cholecalciferol (vitamin D3) 1,250 mcg (50,000 unit) capsule 50,000 unit PO MO 09/20/19 [History Last Taken 10/28/19] metoprolol tartrate 50 mg tablet 50 mg PO BID 09/20/19 [History Last Taken 09/03/20] montelukast 10 mg PO DAILY 10/31/19 [History Last Taken 07/23/20] omeprazole 20 mg PO DAILY 10/31/19 [History Last Taken 09/03/20] atorvastatin 20 mg PO DAILY 04/13/21 [History Last Taken Unknown] citalopram 20 mg PO DAILY 04/13/21 [History Last Taken Unknown] lisdexamfetamine [Vyvanse] 20 mg PO DAILY 04/13/21 [History Last Taken Unknown] ondansetron HCl [Zofran] 4 mg PO Q8H PRN #14 tab 04/13/21 [Rx Last Taken Unknown] Allergy/AdvReac Type Severity Reaction Status Date / Time No Known Allergies Allergy Unverified 04/13/21 17:31 Social History Smoking Status: Former smoker ROS ROS ED Constitutional Constitutional ED: Reports other Details: syncope ; Denies chills or fever(s) Eyes Eyes: Denies blurry vision or change in vision ENT ENT ED: Denies ear pain or rhinorrhea Cardiovascular Cardiovascular: Denies chest pain or palpitations Respiratory/Chest Respiratory/Chest: Denies cough or dyspnea Gastrointestinal Gastrointestinal: Reports abdominal pain, diarrhea, nausea and vomiting Genitourinary Genitourinary ED: Denies dysuria or hematuria Musculoskeletal Musculoskeletal: Reports back pain; Denies arthralgias or myalgias Integumentary Denies rash Neurologic Neurologic: Denies headache(s) or weakness Psychiatric Psychiatric: Denies anxiety or depression EXAM Physical Exam Const Vital Signs: 04/13/21 17:29 04/13/21 17:47 04/13/21 17:52 Temperature 97.9 F Temperature Source Temporal Pulse Rate 88 69 66 Respiratory Rate 18 14 16 Respiratory Effort Blood Pressure 77/56 L 74/57 L 87/59 L Blood Pressure Mean 63 62 68 Pulse Ox 96 97 97 Oxygen Delivery Method Room Air Room Air Room Air 04/13/21 19:25 04/13/21 19:26 04/13/21 19:33 Temperature 97.7 F L Temperature Source Temporal Pulse Rate 74 66 Respiratory Rate 15 13 Respiratory Effort Normal Non-Labored Blood Pressure 117/92 H 117/92 H Blood Pressure Mean 100 100 Pulse Ox Oxygen Delivery Method 04/13/21 20:00 04/13/21 21:00 Temperature 98.1 F 98.1 F Temperature Source Temporal Temporal Pulse Rate 72 67 Respiratory Rate 10 L 13 Respiratory Effort Blood Pressure 136/94 H 134/97 H Blood Pressure Mean 108 109 Pulse Ox 97 96 Oxygen Delivery Method Room Air Room Air Positive well nourished and well developed General Appearance ED: well developed HEENT Reports TM's clear and moist mucous membranes Negative for trauma Tympanic Membrane ED: Yes TM's clear Eyes PERRL and EOMs intact bilaterally Neck no lymphadenopathy, supple and no JVD Chest Wall inspection of chest normal Resp normal respiratory effort and clear to auscultation bilaterally Cardio regular rate, regular rhythm and no murmurs GI normal to inspection, nondistended, normoactive bowel sounds and non-tender GI Narrative: Negative Das sign Back/Spine no CVA tenderness Extremity normal to inspection General Extremety ED: Negative for edema or tenderness General Extremity: Negative for edema Neuro oriented x3 and CN's II-XII intact bilaterally Motor Exam: Negative for general weakness Psych mental status grossly normal Skin no rashes or lesions noted and no wounds MDM MDM MDM Narrative Medical decision making narrative: Patient evaluated for syncope that occurred at the clinic. On arrival patient is hypotensive. He is given IV fluids and his blood pressure improved significantly. He states he has been eating or drinking as much because of acid reflux as well as being on Vyvanse. A syncopal work-up obtained. Lab work is notable for mild anemia of 11.4 and a leukopenia of 3.4. His platelet count is normal. CMP largely normal. He does have a mild elevation of his AST at 81. High-sensitivity count is normal at 7. D-dimer is elevated 0.87. CT does not show any acute process including no signs of PE or pneumonia. Urinalysis is consistent with dehydration he does have a mildly elevated lactate of 2.6. I suspect all this is consistent with dehydration as he has had poor oral intake. Patient be discharged home with a prescription for Zofran. He is counseled to avoid using muscle relaxers as I suspect that worsened his symptoms today. He will continue to work with his PCP for titration of his ADHD medication. He is counseled return precautions. He verbalizes agreement understand this plan. Patient discharged home in stable condition. Lab Data Labs: Laboratory Results - last 24 hr 04/13/21 04/13/21 04/13/21 17:40 17:40 19:10 WBC 3.4 L RBC 3.21 L Hgb 11.4 L Hct 32.1 L MCV 100.0 H MCH 35.5 H MCHC 35.5 RDW Std Deviation 46.2 H RDW Coeff of Zuleika 12.6 Plt Count 301 MPV 9.3 Immature Gran % (Auto) 0.300 Neut % (Auto) 49.4 Lymph % (Auto) 35.4 Carver % (Auto) 13.1 H Eos % (Auto) 0.0 Baso % (Auto) 1.8 H Absolute Neuts (auto) 1.7 L Absolute Lymphs (auto) 1.19 Nucleated RBC % 0 D-Dimer Quant (PE/DVT) 0.87 H* Sodium 138 Potassium 3.4 L Chloride 101 Carbon Dioxide 28.0 Anion Gap 9 BUN 23 H Creatinine 0.92 Estim Creat Clear Calc 102.31 Est GFR (MDRD) Af Amer 112 Est GFR (MDRD) Non-Af 92 BUN/Creatinine Ratio 25.0 H Glucose 138 H Lactic Acid Calcium 7.8 L Total Bilirubin 0.80 AST 81 H ALT 50 Alkaline Phosphatase 105 Troponin I High Sens 7 Total Protein 6.2 L Albumin 3.0 L Globulin 3.2 Albumin/Globulin Ratio 0.9 Urine Color Urine Clarity Urine pH Ur Specific [place] Urine Protein Urine Glucose (UA) Urine Ketones Urine Occult Blood Urine Nitrite Urine Bilirubin Urine Urobilinogen Ur Leukocyte Esterase Urine RBC Urine WBC Ur Squamous Epith Cells Urine Bacteria Urine Mucus 04/13/21 04/13/21 19:10 19:20 WBC RBC Hgb Hct MCV MCH MCHC RDW Std Deviation RDW Coeff of Zuleika Plt Count MPV Immature Gran % (Auto) Neut % (Auto) Lymph % (Auto) Carver % (Auto) Eos % (Auto) Baso % (Auto) Absolute Neuts (auto) Absolute Lymphs (auto) Nucleated RBC % D-Dimer Quant (PE/DVT) Sodium Potassium Chloride Carbon Dioxide Anion Gap BUN Creatinine Estim Creat Clear Calc Est GFR (MDRD) Af Amer Est GFR (MDRD) Non-Af BUN/Creatinine Ratio Glucose Lactic Acid 2.6 H* Calcium Total Bilirubin AST ALT Alkaline Phosphatase Troponin I High Sens Total Protein Albumin Globulin Albumin/Globulin Ratio Urine Color Yellow Urine Clarity Clear Urine pH 7.0 Ur Specific [place] 1.010 Urine Protein 15 H Urine Glucose (UA) Normal Urine Ketones 5 H Urine Occult Blood Negative Urine Nitrite Negative Urine Bilirubin Negative Urine Urobilinogen 4 H Ur Leukocyte Esterase Negative Urine RBC 0 SEEN Urine WBC 0-5 SEEN Ur Squamous Epith Cells 0 SEEN Urine Bacteria 0 SEEN Urine Mucus 0 SEEN Radiography Chest X-Ray - ED: 1 View, Read by ED Physician, Read by Radiologist and No Acute Disease Diagnostic Testing: Radiology Impression Chest X-Ray 04/13/21 18:25 IMPRESSION: No acute thoracic pathology. Electronically Signed: Darshan Bean MD at 20:15 EDT Tel , Service support , Chest CTA 04/13/21 19:54 IMPRESSION: Normal CTA chest examination, without a demonstrated pulmonary embolism or arterial dissection. No pulmonary infiltrates or pleural effusions. Enlarged, fatty liver. Electronically Signed: Darshan Bean MD at 20:55 EDT Tel , Service support , Rhythm Strip Rhythm Strip: Sinus Rhythm Rate: 67 Ectopy: None EKG Initial EKG: Attestation: I personally reviewed and interpreted this EKG as follows: Interpretation: Sinus Rhythm Comments: Normal sinus rhythm at a rate of 67 Normal axis Normal intervals Normal ST segments Nonspecific T wave inversions in aVR and V1, likely normal variant Prior EKG tracings: available for review Prior: Unchanged Discharge Plan Triage Chief Complaint: Syncope ED Provider: Deb Alexander Dx/Rx/DC Orders Clinical Impression: Syncope and collapse, Acute hypotension, Dehydration Instructions: ED Dehydration (Adult), ED Hypotension, Orthostatic Prescriptions: New ondansetron HCl [Zofran] 4 mg tablet 4 mg PO Q8H PRN (Reason: nausea and vomiting) Qty: 14 RF: 0 No Action metoprolol tartrate 50 mg tablet 50 mg PO BID RF: 0 cholecalciferol (vitamin D3) 1,250 mcg (50,000 unit) capsule 50,000 unit PO MO RF: 0 montelukast 10 MG tablet 10 mg PO DAILY RF: 0 omeprazole 20 MG capsule 20 mg PO DAILY RF: 0 atorvastatin 20 mg tablet 20 mg PO DAILY RF: 0 citalopram 20 mg tablet 20 mg PO DAILY RF: 0 Vyvanse 20 mg capsule 20 mg PO DAILY RF: 0 Primary Care Provider[facility]rano [facility] - Activity Restrictions/Additional Instructions: Hold your metoprolol tonight. He might need to decrease the dose by half because of your lightheadedness and low blood pressure. Disposition Disposition: Home, Self Care
[2021-04-13 19:28] LABS: Absolute Lymphocyte Count 1.19 X10^3/uL (0.83-4.51); Absolute Neutrophil Count 1.7 X10^3/uL (2.0-7.7); Basophil# 0.06 X10^3/uL; Basophil% 1.8 % (0-1); Hematocrit 32.1 % (40-54); Hemoglobin 11.4 g/dL (13.0-16.5); Lymphocyte # 1.19 X10^3/ul (0.83-4.51); Lymphocyte % 35.4 % (19-41); Mean Corp Hgb Conc 35.5 g/dL (32-36); Mean Corpuscular Hgb 35.5 pg (27.0-32.0); Mean Platelet Vol. 9.3 fl (6.2-12.0); Monocyte# 0.44 X10^3/uL; Monocyte% 13.1 % (0-10); NRBC Flagged by Analyzer 0 % (0-5); Neutrophil # 1.66 X10^3/uL (2.7-7.7); Neutrophil % 49.4 % (47-70); Platelet Count 301 K/mm3 (150-450); RBC Distribution Width CV 12.6 % (11.6-14.6); RBC Distribution Width SD 46.2 fl (35.1-43.9); Red Blood Count 3.21 M/mm3 (4.6-6.2); White Blood Count 3.4 K/mm3 (4.4-11.0)
[2021-04-13 19:30] LABS: Bacteria 0 SEEN /hpf (None Seen); Mucous, Urine 0 SEEN /hpf (<or=2+); Red Blood Cells-Urine 0 SEEN /hpf (0-5); Squamous Epithelial Cells - UA 0 SEEN /hpf (0-5)
[2021-04-13 19:32] LABS: Color, Urine Yellow (Yellow); Glucose, Dipstick Normal (Normal); Ketone-Dipstick 5 mg/dl (Negative); Leukocyte Esterase-Dipstick Negative /ul (Negative); Nitrite-Dipstick Negative (Negative); Occult Blood-Urine Negative /ul (Negative); Protein-Dipstick 15 mg/dl (Negative); Urine Bilirubin Dipstick Negative (Negative); Urine Clarity Clear (Clear); Urine Urobilinogen 4 mg/dl (Normal)
[2021-04-13 19:44] LABS: ALB/GLOB Ratio 0.9 RATIO (0.9-2.4); AST(SGOT) 81 U/L (15-37); Alanine Aminotransfer ALT/SGPT 50 U/L (16-61); Alkaline Phosphatase 105 U/L (45-117); Anion Gap 9 (5-15); BUN 23 mg/dL (7-18); Calcium,Total 7.8 mg/dL (8.5-10.1); Chloride 101 mmol/L (98-107); Creatinine, Serum 0.92 mg/dL (0.70-1.30); EST Glomerular Filtration Rate 92 mL/min (>60); Est Glom Filt Rate - Afr Amer 112 mL/min (>60); Estimated Creatinine Clearance 102.31 ml/min; Globulin 3.2 g/dL (2.2-4.2); Glucose 138 mg/dL (74-106); Potassium 3.4 mmol/L (3.5-5.1); Protein, Total 6.2 g/dL (6.4-8.2); Sodium Level 138 mmol/L (136-145); Troponin-I HS 7 pg/mL (3.0-78.0)
[2021-04-13 19:47] LABS: D-Dimer Quantitative (DVT/PE) 0.87 FEU/ug/m (0.27-0.49)
[2021-04-13 19:52] LABS: Lactic Acid 2.6 mmol/L (0.4-1.9)
--- NOTE | 2021-04-13 19:54 | CT_ITS ---
STUDY: CTA CHEST REASON FOR EXAM: Male, 51 years old. Syncope, elevated dimer RADIATION DOSAGE (If Supplied By Facility): CTDIvol = ( 14.56 ) mGy, DLP = ( 502.14 ) mGycm TECHNIQUE: The examination was performed with the intravenous administration of IV 100mL Isovue-370. Post-processing of the angiographic images was performed, with multiplanar reformation and 3D reconstruction. Individualized dose optimization techniques were used for this CT. COMPARISON: None. FINDINGS: Normal enhancement of the main pulmonary artery and right and left pulmonary arteries. Normal enhancement of the bilateral peripheral pulmonary arteries. There is no demonstrated pulmonary embolism. Normal thoracic aorta and visualized great vessels. There is no demonstrated aortic dissection. Normal heart and pericardium. Normal mediastinum. Normal hilar regions. Normal visualized trachea and bronchi. The lungs are well expanded. There is a calcified granuloma in the right upper lobe. There are no pulmonary. Normal pleura. Normal chest wall structures. Normal osseous structures. The liver is enlarged with diffuse fatty infiltration noted. CT/CTA Chest W/WO Contrast IMPRESSION: Normal CTA chest examination, without a demonstrated pulmonary embolism or arterial dissection. No pulmonary infiltrates or pleural effusions. Enlarged, fatty liver. Electronically Signed: Darshan Bean MD at 20:55 EDT Tel , Service support ,
[2021-04-13 20:17] LABS: White Blood Cells 0-5 SEEN /hpf (0-5)
[2021-04-13] MEDS: 0.9% Normal Saline 1,000 ML 999 ML IV (20:45)
[2021-04-13 23:22] LABS: Reflex Lactate? Y
== END 2021-04-13 21:44 | disposition home or self-care (01) ==
PROVIDERS: Emergency Provider Emergency Medicine
DX: R55 Syncope and collapse (principal); I95.9 Hypotension, unspecified; E86.0 Dehydration; I10 Essential (primary) hypertension; K21.9 Gastro-esophageal reflux disease without esophagitis; Z79.899 Other long term (current) drug therapy; Z87.891 Personal history of nicotine dependence
CPT/HCPCS: 71045; 71275; 80053; 81001; 83605; 84484; 85025; 85379; 93005; 99285; J7030; Q9967; A4216

== ENCOUNTER → 2021-05-17 08:44 | Outpatient (CLI) | payer MEDICAID, SELFPAY ==
--- NOTE | 2021-05-17 09:13 | US_ITS ---
STUDY: ABDOMINAL ULTRASOUND - RIGHT UPPER QUADRANT REASON FOR VISIT: Male, 51 years old ELEVATED LIVER ENZYMES TECHNIQUE: Ultrasound evaluation of the right upper quadrant was performed with real-time and static downey-scale imaging. TECHNICAL QUALITY: Adequate. COMPARISON: Comparison is made with prior CT scan of the thorax dated 04/13/2021. FINDINGS: Liver: The liver measures 19.3 cm. There is increased echogenicity consistent with fatty infiltration. The bile ducts are within normal limits. There is hepatic color flow. The direction of portal flow is hepatopetal. There is no demonstrated mass lesion. Gallbladder: Normal distended gallbladder. The gallbladder wall measures 2.3 mm. There is a negative sonographic Das''s sign. There is no pericholecystic fluid. There are no gallstones. Common Bile Duct (C.B.D.): The common bile duct measures 6.7 mm. Pancreas: Normal size of the head, body and tail of the pancreas. There is increased echogenicity of the pancreas. There is no demonstrated pancreatic mass or cyst. Right Kidney: Normal size of the right kidney. The right kidney measures 12.1 cm x 5.9 cm x 6.7 cm. Normal renal cortex. The right cortex measures 2.4 cm. There is no demonstrated renal mass or cyst. There is no right hydronephrosis. US/Abdomen Limited IMPRESSION: Mild hepatomegaly and fatty infiltration of the liver. Electronically Signed: Linus Almanzar MD at 11:07 EDT , Service support ,
[2021-05-17 11:27] LABS: Cholesterol 220 mg/dL (200); High Density Lipoprotein 78 mg/dL; Triglycerides 127 mg/dL; Very Low Density Lipoprotein 25 mg/dL (5-40)
[2021-05-17 11:57] LABS: Hepatitis B Surface Antibody Non-Reactive; Hepatitis B Surface Antigen Non-Reactive (Nonreactive)
[2021-05-18 20:08] LABS: HCV Quant. RNA PCR HCV Not Detected IU/mL (.)
== END ==
PROVIDERS: Referring Provider Nurse Practitioner Adult Health; Visit Provider Nurse Practitioner Adult Health
DX: R74.01 Elevation of levels of liver transaminase levels (principal); F10.19 Alcohol abuse with unspecified alcohol-induced disorder
CPT/HCPCS: 36415; 76705; 80061; 86706; 87340; 87522

== ENCOUNTER → 2021-05-24 09:19 | Outpatient (CLI) | payer MEDICAID, SELFPAY ==
[2021-05-24 12:59] LABS: Hepatitis B Surface Antigen Non-Reactive (Nonreactive)
[2021-05-24 13:17] LABS: ALB/GLOB Ratio 0.9 RATIO (0.9-2.4); AST(SGOT) 30 U/L (15-37); Alanine Aminotransfer ALT/SGPT 37 U/L (16-61); Albumin, Serum 3.5 g/dL (3.2-5.0); Alkaline Phosphatase 122 U/L (45-117); Anion Gap 9 (5-15); BUN 11 mg/dL (7-18); BUN/Creat Ratio 12.3 RATIO (10-20); Calcium,Total 9.6 mg/dL (8.5-10.1); Chloride 102 mmol/L (98-107); EST Glomerular Filtration Rate 95 mL/min (>60); Est Glom Filt Rate - Afr Amer 115 mL/min (>60); Globulin 3.7 g/dL (2.2-4.2); Glucose 85 mg/dL (74-106); Potassium 4.1 mmol/L (3.5-5.1); Protein, Total 7.2 g/dL (6.4-8.2); Sodium Level 139 mmol/L (136-145)
[2021-05-26 20:25] LABS: Hepatitis B Core Ab Total Negative (Negative)
== END ==
PROVIDERS: Referring Provider Nurse Practitioner Adult Health; Visit Provider Nurse Practitioner Adult Health
DX: R74.01 Elevation of levels of liver transaminase levels (principal); F90.9 Attention-deficit hyperactivity disorder, unspecified type
CPT/HCPCS: 36415; 80053; 86704; 87340; 87521

== ENCOUNTER → 2021-05-26 09:19 | Outpatient (CLI) | payer MEDICAID, SELFPAY ==
--- NOTE | 2021-05-26 09:20 | EKG12_ITS ---
Test Reason : ABNL ECG Blood Pressure : / mmHG Vent. Rate : 077 BPM Atrial Rate : 077 BPM P-R Int : 148 ms QRS Dur : 098 ms QT Int : 392 ms P-R-T Axes : 042 040 053 degrees QTc Int : 443 ms Normal sinus rhythm Normal ECG Confirmed by DESIRAE BURNS, TG ([id number]), greeting card editor KATIE CRANE ([id number]) on 05/27/2021 7:47:42 AM Referred By: Oksana Garcia Confirmed By:TG MERRILL MD
== END ==
PROVIDERS: Referring Provider Nurse Practitioner Adult Health; Visit Provider Nurse Practitioner Adult Health
DX: R94.31 Abnormal electrocardiogram [ECG] [EKG] (principal)
CPT/HCPCS: 93005

== ENCOUNTER 2021-05-28 05:48 | Day surgery (SDC) | payer MEDICAID, SELFPAY ==
[2021-05-28] VITALS (13 sets, daily range): BP systolic 104–157; BP diastolic 79–118; PULSE 68–78; RESP 16; TEMP 36.3–36.6; O2SAT 93–100; BMI 28.1
--- NOTE | 2021-05-28 06:23 | HP.PCM_ITS ---
HPI - General HPI Narrative GRICEL DURAN, is a 51 M who presents for screening colonoscopy. He has never had a previous one. He has no particular history or illnesses. No symptoms. He is feeling well. He has not had COVID-19. He has been vaccinated. [facility] Medical History (Updated 05/28/21 @ 06:[address] Forest Gonzalez MD) Alcohol use Anxiety Arthritis Asthma Back pain Depression Fatty liver Gastric reflux High cholesterol History of pain when walking History of steroid therapy Hx of fracture of arm Hypertension Injury of back Injury of head and neck Non-smoker Restless legs Sleep apnea Wears glasses Home Medications cholecalciferol (vitamin D3) 1,250 mcg (50,000 unit) capsule 50,000 unit PO MO 09/20/19 [History Last Taken 10/28/19] metoprolol tartrate 50 mg tablet 50 mg PO BID 09/20/19 [History Last Taken 05/28/21 03:00] montelukast 10 mg PO DAILY 10/31/19 [History Last Taken 07/23/20] omeprazole 40 mg PO DAILY 10/31/19 [History Last Taken 05/28/21 03:00] atorvastatin 20 mg PO DAILY 04/13/21 [History Last Taken Unknown] albuterol sulfate 90 mcg INHALATION PRN PRN 05/25/21 [History Last Taken Unknown] bupropion HCl 150 mg PO DAILY 05/25/21 [History Last Taken Unknown] omeprazole 20 mg PO QHS 05/25/21 [History Last Taken Unknown] Allergy/AdvReac Type Severity Reaction Status Date / Time No Known Allergies Allergy Verified 05/28/21 06:13 Surgical History (Updated 05/25/21 @ 13:53 by Breann Strauss) Hx of arthroscopy of shoulder Social History Smoking Status: Former smoker ROS Constitutional Constitutional: Reports systems reviewed and no addt'l complaints, except as documented Cardiovascular Cardiovascular: Denies chest pain Respiratory/Chest Respiratory/Chest: Denies shortness of breath at rest Gastrointestinal Gastrointestinal: Denies abdominal pain, change in bowel habits, hematochezia or melena Physical Exam Const alert, oriented x3 and no apparent distress General Appearance: cooperative and comfortable Eyes General Eye: normal appearance of both eyes Neck General: normal visual inspection Chest inspection of chest normal Resp Effort and Inspection: able to speak in complete sentences and symmetric chest movement Auscultation: clear to auscultation bilaterally Cardio regular rate and regular rhythm GI soft to palpation, non-tender and non-distended Extremity no calf tenderness Neuro oriented x3 Psych thought process normal Assessment & Plan Assessment/Plan (1) Screening for intestinal cancer: PLAN: The patient presents for screening colonoscopy today with possible biopsy or polypectomy as indicated. He is aware of the technique, benefit, risk, alternatives. He has had an opportunity to ask and have questions answered. He presents via open access today. We will proceed as noted. Forest Gonzalez M.D., F.A.C.S.
[2021-05-28] MEDS: Lactated Ringers 1,000 ML 100 ML IV (06:25)
[2021-05-28] MEDS: Midazolam 5 MG/ML Syringe (07:09)
[2021-05-28] MEDS: DiphenhydrAMINE 50 MG/ML Syringe (07:20)
--- NOTE | 2021-05-28 07:34 | OP.COLON_ITS ---
Patient Name: Gasper Jara Procedure Date: 05/28/2021 7:03 AM Date of : 1970 Age: 51 Procedure: Colonoscopy Indications: Screening for colorectal malignant neoplasm Providers: Forest Gonzalez MD Medicines: Midazolam 5 mg IV, Meperidine 100 mg IV, Diphenhydramine 25 mg IV Patient Profile: Last Colonoscopy: none. The patient's first colonoscopy is today. Complications: No immediate complications. Procedure: Pre-Anesthesia Assessment: - Prior to the procedure, a History and Physical was performed, and patient medications and allergies were reviewed. The patient's tolerance of previous anesthesia was also reviewed. The risks and benefits of the procedure and the sedation options and risks were discussed with the patient. All questions were answered, and informed consent was obtained. Prior Anticoagulants: The patient has taken no previous anticoagulant or antiplatelet agents. ASA Grade Assessment: II - A patient with mild systemic disease. After reviewing the risks and benefits, the patient was deemed in satisfactory condition to undergo the procedure. After I obtained informed consent, the scope was passed under direct vision. Throughout the procedure, the patient's blood pressure, pulse, and oxygen saturations were monitored continuously. The colonoscope was introduced through the anus and advanced to the cecum, identified by appendiceal orifice and ileocecal valve. The colonoscopy was somewhat difficult due to a tortuous colon. Successful completion of the procedure was aided by increasing the dose of sedation medication. The patient tolerated the procedure fairly well. The quality of the bowel preparation was good. The ileocecal valve and the appendiceal orifice were photographed. Moderate Sedation: Moderate (conscious) sedation was personally administered by the endoscopist. The following parameters were monitored: oxygen saturation, heart rate, blood pressure, and response to care. Total physician intraservice time was 15 minutes. Scope In: 7:12:27 AM Scope Withdrawal Time 0 hours 6 minutes 24 seconds Scope Out: 7:29:33 AM Total Procedure Duration Time 0 hours 17 minutes 6 seconds Findings: The perianal and digital rectal examinations were normal. Scattered diverticula were found in the sigmoid colon. The exam was otherwise without abnormality. Impression: - Diverticulosis in the sigmoid colon. - The examination was otherwise normal. - No specimens collected. Recommendation: - Discharge patient to home. - Resume previous diet. - Continue present medications. - Repeat colonoscopy in 10 years for screening purposes. Procedure Code(s): --- Professional --- 77238, Colonoscopy, flexible; diagnostic, including collection of specimen(s) by brushing or washing, when performed (separate procedure) 96393, 59, Moderate sedation services provided by the same physician or other qualified health patient care coordinator performing the diagnostic or therapeutic service that the sedation supports, requiring the presence of an independent trained observer to assist in the monitoring of the patient's level of consciousness and physiological status; initial 15 minutes of intraservice time, patient age 5 years or older Diagnosis Code(s): --- Professional --- Z12.11, Encounter for screening for malignant neoplasm of colon K57.30, Diverticulosis of large intestine without perforation or abscess without bleeding CPT copyright 2017 [employer]. All rights reserved. The codes documented in this report are preliminary and upon drug room operator review may be revised to meet current compliance requirements. Forest Gonzalez MD 05/28/2021 7:33:28 AM This report has been signed electronically. Number of Addenda: 0 Note Initiated On: 05/28/2021 7:03 AM
--- NOTE | 2021-05-28 07:34 | OP.CCLET_ITS ---
05/28/[address] [facility] Re : Colonoscopy procedure for Gasper Haddad [facility] This procedure was performed on Friday, May 28, 2021. My impressions and recommendations are as follows: Impressions : - Diverticulosis in the sigmoid colon. - The examination was otherwise normal. - No specimens collected. Recommendations : - Discharge patient to home. - Resume previous diet. - Continue present medications. - Repeat colonoscopy in 10 years for screening purposes. My findings are described in the full procedure note, which is enclosed. If I can be of further assistance, please feel free to contact me at Doctor phone number(s): Work: . Sincerely, Forest Gonzalez MD 05/28/2021 7:33:28 AM This report has been signed electronically.
== END 2021-05-28 08:30 ==
LOC: EN 05:49 → AC 05:50
PROVIDERS: Visit Provider Surgery
PROC: 0DJD8ZZ Inspection of Lower Intestinal Tract, Via Natural or Artificial Opening Endoscopic (ICD-10-PCS; CPT 45378; principal; 2021-05-28 06:55)
DX: Z12.11 Encounter for screening for malignant neoplasm of colon (principal); K57.30 Diverticulosis of large intestine without perforation or abscess without bleeding; K21.9 Gastro-esophageal reflux disease without esophagitis; I10 Essential (primary) hypertension; E78.00 Pure hypercholesterolemia, unspecified; J45.909 Unspecified asthma, uncomplicated; G25.81 Restless legs syndrome; M19.90 Unspecified osteoarthritis, unspecified site; G47.30 Sleep apnea, unspecified; F32.A Depression, unspecified; F41.9 Anxiety disorder, unspecified; Z87.891 Personal history of nicotine dependence
CPT/HCPCS: 45378; 99152; 99153; J7120

== ENCOUNTER → 2021-07-12 10:24 | Outpatient (CLI) | payer MEDICAID, SELFPAY ==
--- NOTE | 2021-07-12 09:27 | RAD_ITS ---
STUDY: X-RAY CHEST REASON FOR EXAM: Male, 51 years old. preop TECHNIQUE: PA and lateral views of the chest. COMPARISON: 04/13/2021 FINDINGS: The lungs are clear and expanded. There is no demonstrated pleural abnormality. Normal size heart. Normal mediastinum and irene. Normal visualized pulmonary arteries. Normal visualized aortic arch and descending thoracic aorta. Normal visualized thoracic spine. Normal visualized ribs, clavicles, and shoulders. There is no demonstrated abnormality of the visualized soft tissue structures of the upper abdomen. RAD/Chest PA and Lateral IMPRESSION: Normal x-ray examination of the chest. Electronically Signed: Troy Tam MD at 10:05 EST Tel , Service support ,
--- NOTE | 2021-07-12 09:28 | RAD_ITS ---
STUDY: X-RAY - SACRUM/COCCYX REASON FOR EXAM: Male, 51 years old. PAIN TECHNIQUE: 2 view(s) of the sacrum and coccyx were obtained. COMPARISON: None. FINDINGS: Normal bilateral sacroiliac joints. Normal visualized sacral ala and fused sacral bodies. Normal sacrococcygeal junction with a normal angulation. Normal coccygeal segments. The presacral soft tissue structures are unremarkable. RAD/Sacrum-Coccyx min 2 Views IMPRESSION: Normal x-rays of the sacrum and coccyx. Electronically Signed: Troy Tam MD at 10:04 EST Tel , Service support ,
--- NOTE | 2021-07-12 09:28 | RAD_ITS ---
STUDY: X-RAY - THORACIC SPINE REASON FOR EXAM: Male, 51 years old. PAIN TECHNIQUE: 3 view(s) of the thoracic spine were obtained. COMPARISON: None. FINDINGS: Normal kyphosis of the thoracic spine. Mild S-shaped scoliosis of the thoracic spine. Normal thoracic vertebrae and endplates. Normal disc space heights. The soft tissue structures are unremarkable. RAD/Thoracic Spine 3 Views IMPRESSION: Mild S-shaped scoliosis. Electronically Signed: Troy Tam MD at 10:03 EST Tel , Service support ,
== END ==
LOC: LAB 10:32 → RAD 07-14 10:24
PROVIDERS: Referring Provider Orthopaedic Surgery; Visit Provider Orthopaedic Surgery
DX: Z01.818 Encounter for other preprocedural examination (principal); M54.6 Pain in thoracic spine
CPT/HCPCS: 36415; 71046; 72072; 72220; 80048; 85025; 85610; 85730

== ENCOUNTER 2021-07-22 05:57 | Inpatient (IN) | payer MEDICAID, SELFPAY ==
--- NOTE | 2021-07-12 09:58 | EKG12_ITS ---
Test Reason : PREOP Blood Pressure : / mmHG Vent. Rate : 076 BPM Atrial Rate : 076 BPM P-R Int : 162 ms QRS Dur : 096 ms QT Int : 384 ms P-R-T Axes : 068 039 052 degrees QTc Int : 432 ms Normal sinus rhythm Normal ECG Confirmed by DESIRAE BURNS, TG ([id number]), department editor KATIE CRANE ([id number]) on 07/13/2021 10:03:51 AM Referred By: TOBIN Confirmed By:TG MERRILL MD
[2021-07-12 10:42] LABS: Absolute Neutrophil Count 8.1 X10^3/uL (2.0-7.7); Basophil# 0.06 X10^3/uL; Basophil% 0.5 % (0-1); Eosinophil# 0.12 X10^3/uL; Eosinophils% 1.1 % (0-5); Hematocrit 35.7 % (40-54); Lymphocyte % 16.9 % (19-41); Mean Corp Hgb Conc 33.6 g/dL (32-36); Mean Corpuscular Hgb 34.3 pg (27.0-32.0); Mean Platelet Vol. 10.1 fl (6.2-12.0); Monocyte# 0.98 X10^3/uL; Monocyte% 8.7 % (0-10); NRBC Flagged by Analyzer 0 % (0-5); Neutrophil # 8.05 X10^3/uL (2.7-7.7); Neutrophil % 71.8 % (47-70); Platelet Count 232 K/mm3 (150-450); RBC Distribution Width CV 14.6 % (11.6-14.6); RBC Distribution Width SD 54.9 fl (35.1-43.9); White Blood Count 11.2 K/mm3 (4.4-11.0)
[2021-07-12 10:48] LABS: International Normalized Ratio 0.9; Prothrombin Time (Protime)PT. 11.6 SECONDS (11.7-14.9)
[2021-07-12 10:49] LABS: Partial Thromboplast Time 26.3 Seconds (24.1-36.2)
[2021-07-12 11:15] LABS: Anion Gap 9 (5-15); BUN 24 mg/dL (7-18); BUN/Creat Ratio 23.3 RATIO (10-20); Calcium,Total 9.7 mg/dL (8.5-10.1); Chloride 99 mmol/L (98-107); Creatinine, Serum 1.03 mg/dL (0.70-1.30); EST Glomerular Filtration Rate 81 mL/min (>60); Est Glom Filt Rate - Afr Amer 98 mL/min (>60); Glucose 71 mg/dL (74-106); Potassium 3.9 mmol/L (3.5-5.1); Sodium Level 135 mmol/L (136-145)
[2021-07-22] VITALS (11 sets, daily range): BP systolic 85–123; BP diastolic 57–85; PULSE 64–111; RESP 16–18; TEMP 36–36.8; O2SAT 94–100; BMI 27.6; BMI 29.7
[2021-07-22] MEDS: Lactated Ringers 1,000 ML 15 ML IV ×5 (07:04→17:58)
--- NOTE | 2021-07-22 07:30 | DS.PCM_ITS ---
Providers Date of Admission: 07/22/21 Primary Care Physician: [facility] Reason For Visit: lumbar 5 sacral 1 anterior lumbar interbody fusion Diagnosis Discharge Diagnosis (1) Lumbar stenosis: Status: Acute Code(s): M48.061 - Spinal stenosis, lumbar region without neurogenic claudication Medications at Discharge Home Medications metoprolol tartrate 50 mg tablet 50 mg PO BID 09/20/19 montelukast 10 mg PO QHS 10/31/19 omeprazole 40 mg PO DAILY 10/31/19 atorvastatin 20 mg PO QHS 04/13/21 albuterol sulfate 90 mcg INHALATION PRN PRN 05/25/21 bupropion HCl 150 mg PO DAILY 05/25/21 ergocalciferol (vitamin D2) [Vitamin D2] 1,250 mcg PO FR 07/08/21 oxycodone 10 mg PO Q6H PRN 7 Days #28 tab 07/22/21 Hospital Course Operations - (L3-4, L4-5, L5-S1 posterior lumbar interbody fusion, decompression, posterior spinal fusion with instrumentation, use of allograft) Summary of Care Provided Hospital Course: The patient is a 51-year-old male who underwent L3-4, L4-5, L5- S1 posterior lumbar interbody fusion, decompression, posterior spinal fusion with instrumentation, use of allograft on 07/22/2021. He was subsequently admitted to the floor. The hospitalist was consulted for medical management. He progressed well. His pain was well controlled and he was mobilizing and progressing with physical therapy and mobilizing well independently. His Burns catheter was removed on postoperative day 1. His drain was removed on postoperative day 3. No significant medical issues were reported. He was subsequently discharged home on 07/26/2021 to follow-up with Dr. Warren in 3 weeks. Physical Exam Const alert, oriented x3 and no apparent distress General Appearance: cooperative and comfortable Orientation / Consciousness: awake and oriented to person HEENT head/scalp atraumatic Eyes EOMs intact bilaterally and conjunctivae normal Neck full ROM General: normal visual inspection Resp normal respiratory effort and normal air movement Cardio regular rate and regular rhythm Peripheral Pulses: pulses 2+ throughout GI soft to palpation, non-tender and non-distended Back/Spine Back/Spine Narrative: Dressing clean dry and intact. Cervical Spine: cervical ROM normal Thoracic Spine / Upper Back: normal to inspection Lumbar Spine / Lower Back: normal to inspection Extremity normal to inspection, full ROM, normal capillary refill, no clubbing, cyanosis or edema and no calf tenderness Peripheral Pulses: Yes pulses 2+ throughout Skin no rashes or lesions noted General Skin Exam: no breakdown Neuro oriented x3, CN's II-XII intact bilaterally, moves all extremities, no focal motor deficits, no sensory deficits noted and deep tendon reflexes 2+ bilaterally Motor Exam: strength 5/5 throughout and muscle tone normal throughout Weight / BMI Weight Weight: 198 lb 6.656 oz Body Mass Index (BMI) 27.6 ABG / Lab / Microbiology Data Result Diagrams: 07/23/21 08:10 07/12/21 09:16 D/C Instructions Discharge Diet: No restrictions Lifting Restricted to (Lbs): 5 Additional Activity Instructions: No repetitive bending, twisting, or lifting greater than 5 pounds Call your doctor if your incision/area has: Continuous Slow Oozing, Sudden Increased Bleeding, Increased Pain/ Swelling, Increased Redness, Foul Smelling Discharge and Swelling at the incision site Call your doctor if you observe: Fever of 101 or Higher, Coldness, Increased Pain, Numbness or Tingling, Change in Color, Inability to urinate, Inability to have a bowel movement, Using more than 1 pad per hour, Shortness of breath, Dizziness, Fainting spells, Swelling in the ankles, Chest pain, Prolonged hiccupping, Increased palpitations (irregular heartbeat), Calf discomfort and Uncontrolled pain Additional Dressing/Incision Instructions: Change dressing daily with iodine to incision, apply gauze and tape. [place] dressing over incision to shower Please Follow Up With: Drake Warren DO When: 3 weeks Meaningful Use Info Meaningful Use Diagnoses (Choose all that apply): None applicable Discharge Plan Admission Admit Date/Time: 07/22/21 05:57 Attending Provider: Carlito Haley [facility] Providers: Oksana Garcia ; Naila Jean ; Martha Marc ; Gm Crane ; Kuldeep Delong ; Carlito Haley ; Vipul Antonio ; Norberto Kapadia ; Tai Carvajal ; Mainor Swartz ; Gwen Faustin ; Cristopher Diallo ; Scarlett Lopez ; Santiago Duran ; Felipe Palacios ; Mateusz Carlson ; Nico Santoyo ; Karma Anthony ; Lisa Lechuga NP ; Stephy Holland ; Carla Harris Instructions Additional Instructions / Restrictions: 1. During your procedure, you received sedation through your IV. Please follow these instructions for the next 24 hours: Do not drive a motor vehicle, do not drink any alcoholic beverages, and do not sign any legal documents or make personal or business decisions. A responsible adult should stay with you at least 6 hours after the procedure. 2. Keep your surgical site/incision clean and the dressing dry and intact. You may sponge bathe, you may shower with waterproof dressing covering incisions, but no sitting in a bathtub. You may use an ice pack at the surgical site to reduce any swelling or discomfort. 3. Monitor the incision site for any signs or symptoms of infection. Watch for redness, excessive swelling or drainage, or continued pain at the incision sites. Contact your physician immediately for a fever, chills or a temperature of 101.5? F or greater. 4. Take your medication exactly as prescribed by your physician. Do not attempt to wean yourself off any of your medications even though your pain is improving. This process needs to be carefully monitored by your doctor. Take any antibiotics prescribed exactly as directed and until they are gone. 5. Avoid stretching, bending, pulling, twisting or any sudden movements. Do not bend or twist at the waist. Do not raise your arms above your head; however, you may brush your hair or scratch your head, but nothing higher than that. Do not bend at the waist to put your shoes on; you must lift your legs up to do this. 6. No lifting greater than 5 pounds. 7. Do not operate a motor vehicle, equipment or a power tool while taking pain medication. 8. Do not have any manipulation done by a chiropractor or any other physician without first consulting with the physician. 9. Please contact our office if you are even scheduled for a CT scan or an MRI. 10. Please call us if you have any questions, problems or concerns. Discharge Orders/Prescriptions Prescriptions: New oxycodone 10 mg tablet 10 mg PO Q6H PRN (Reason: pain) 7 Days Qty: 28 RF: 0 Continued metoprolol tartrate 50 mg tablet 50 mg PO BID RF: 0 montelukast 10 MG tablet 10 mg PO QHS RF: 0 omeprazole 20 MG capsule 40 mg PO DAILY RF: 0 atorvastatin 20 mg tablet 20 mg PO QHS RF: 0 bupropion HCl 150 mg Tablet Extended Release 24 Hr 150 mg PO DAILY RF: 0 albuterol sulfate 90 mcg/actuation HFA aerosol inhaler 90 mcg INHALATION PRN PRN (Reason: ASTHMA) RF: 0 ergocalciferol (vitamin D2) [Vitamin D2] 1,250 mcg (50,000 unit) Capsule 1,250 mcg PO FR RF: 0 Discontinued meloxicam 7.5 mg tablet 7.5 mg PO BID RF: 0 Other Ambulatory Orders: 12 Lead EKG (Routine) Timeframe: [id number] Location: None Selected Ordered By: Dr. Drake Warren Referrals / Follow Up: Drake Warren DO [STAFF PHYSICIAN] - [facility] [Primary Care Provider] -
--- NOTE | 2021-07-22 07:30 | PN.ORTHO_ITS ---
Subjective Subjective The patient was seen and examined postoperatively in the PACU. He is complaining of some postop soreness around his surgery site in the lower back. He denies any other complaints including numbness tingling or weakness. He is resting comfortably. Objective Data Objective Data Vital Signs: Vital Signs Temp Pulse Resp BP Pulse Ox 98.1 F 84 16 123/85 H 98 07/22/21 07:05 07/22/21 07:05 07/22/21 07:05 07/22/21 07:05 07/22/21 07:05 Oxygen Delivery Method Room Air Weight: 198 lb 6.656 oz Body Mass Index (BMI) 27.6 Lab / Micro Data Result Diagrams: 07/12/21 09:16 07/12/21 09:16 Physical Exam Const alert, oriented x3 and no apparent distress General Appearance: cooperative and comfortable HEENT head/scalp atraumatic Eyes EOMs intact bilaterally and conjunctivae normal Neck full ROM General: normal visual inspection Resp normal respiratory effort and normal air movement Cardio regular rate and regular rhythm Peripheral Pulses: pulses 2+ throughout GI soft to palpation, non-tender and non-distended Back/Spine normal ROM Back/Spine Narrative: Dressing clean dry and intact. Drain in place and functioning with a mild amount of serosanguineous fluid present in the drain Cervical Spine: cervical ROM normal Thoracic Spine / Upper Back: normal to inspection Lumbar Spine / Lower Back: normal to inspection Extremity normal to inspection, full ROM, normal capillary refill, no clubbing, cyanosis or edema and no calf tenderness Peripheral Pulses: Yes pulses 2+ throughout Skin no rashes or lesions noted General Skin Exam: no breakdown Neuro oriented x3, CN's II-XII intact bilaterally, moves all extremities, no focal motor deficits, no sensory deficits noted and deep tendon reflexes 2+ bilat erally Motor Exam: strength 5/5 throughout and muscle tone normal throughout Assessment & Plan Assessment/Plan (1) Lumbar stenosis: PLAN: Okay to admit to floor Pain control and mobilization as tolerated See orders Keep dressing clean dry and intact, reinforce as needed. Dr. Warren will perform first dressing change when he pulls the drain Keep antibiotics going as scheduled while drain in place
--- NOTE | 2021-07-22 07:30 | PCM.OPRPT ---
Problems Associated Problem List Diagnoses (1) Lumbar stenosis: Report of Operation Date of Procedure: 07/22/21 Pre-Operative Diagnosis: 1. Lumbar stenosis, L3-4, L4-5, and L5-S1 with spondylosis 2. Lumbar degenerative disc disease L3-4, L4-5, and L5-S1 Post-Operative Diagnosis: 1. Lumbar stenosis, L3-4, L4-5, and L5-S1 with spondylosis 2. Lumbar degenerative disc disease L3-4, L4-5, and L5-S1 Surgery/Procedure Performed:: 1. L3-4 posterior lumbar interbody fusion 2. L4-5 posterior lumbar interbody fusion 3. L5-S1 posterior lumbar interbody fusion 4. Insertion of intervertebral biomechanical device x3 5. Structural allograft for spinal fusion 6. L3 bilateral laminectomies, foraminotomies, facetectomies, decompression of bilateral L3 nerve roots 7. L4 bilateral laminectomies, foraminotomies, facetectomies, decompression of bilateral L4 nerve roots 8. L5 bilateral laminectomies, foraminotomies, facetectomies, decompression of bilateral L5 nerve roots 9. S1 bilateral laminectomies, foraminotomies, facetectomies, decompression of bilateral S1 nerve roots 10. L3-4 posterior lateral fusion 11. L4-5 posterior lateral fusion 12. L5-S1 posterior lateral fusion 13. Local autograft for spinal fusion 14. Neuro monitoring bilateral upper and bilateral lower extremities Description of Surgical Findings:: The patient is a 51-year-old male with intractable back and leg pain. Image studies confirm the above diagnoses. He has failed conservative treatment to include medication, physical therapy and injections. The patient opted for operative intervention understanding the risks to include, but not limited to, infection, bleeding, damage to nerves arteries and veins, possibility of spinal fluid leak, nonunion, hardware failure, continued pain, need for further surgery, deep vein thrombosis, pulmonary embolism, heart attack, risk of stroke or The patient was identified in the preoperative holding area. There he received preoperative IV antibiotics, Ancef, and was then transferred to the operative suite. Once in the operative suite after general endotracheal anesthesia was established, the patient was transferred to the [place] operating table in the prone position. All bony prominences were padded accordingly. The lumbar spine was prepped and draped in a standard surgical fashion. A midline incision was made and taken down to the level of the lumbodorsal fascia. The fascia was then divided and subperiosteal dissection was taken down to the level of the transverse processes of L3, L4, and L5, and the sacral ala of S1. Deep retractors were placed. A bone scalpel was used to make cuts in the lamina of L3, L4, and L5, and then a series of rongeurs and Kerrisons was used removing the spinous processes and lamina of L3, L4, and L5. Then, facetectomies of greater than 50% were performed as well as foraminotomies, decompressing the bilateral L3, L4, L5, and S1 nerve roots. Given the severity of the stenosis, we needed to perform wide bilateral laminectomies and near complete facetectomies in order to decompress the neural elements, therefore creating instability necessitating the fusion. At this point the nerve roots and dura were retracted medially and an annulotomy was made with a 15 blade scalpel at L3-4 on the left. A series of curettes and pituitaries were used to remove the disc material and a rasp was used to prepare the endplates. An appropriate sized peek cage device measuring 7 mm was packed with structural allograft and impacted into position, completing the posterior lumbar interbody fusion at L3-4. Similar steps were performed at L4-5 using a peek cage device measuring 8 mm, and also at L5-S1 with a peek cage device measuring 7 mm, thus completing the L4-5 and L5-S1 posterior lumbar interbody fusion. I then proceeded with pedicle screw fixation. Starting points were found at the junction of the superior articular process and transverse process of L3, L4, and L5, and the sacral ala of S1. A power bur was used for the starting points. Pedicle probes were placed bilaterally and then 6.5 x 45 mm screws were placed bilaterally at L3, 6.5 x 45 mm screws were placed bilaterally at L4, 6.5 x 45 mm screws were placed bilaterally at L5, and 6.5 x 40 mm screws were placed bilaterally at S1. The screws were tested with intraoperative neurophysiologic monitoring and they tested within normal limits. Connecting rods and setscrews were then applied. I then proceeded with the posterior lateral fusion. This was accomplished by decorticating the transverse processes bilaterally at L3, L4, L5, and the sacral ala of S1. This decorticated bone was then bridged with local autograft from the decompression as well as morselized cancellous allograft, therefore, completing the posterior lateral fusion at L3-4, L4-5, and L5-S1. The incision was then thoroughly irrigated. Tisseel was placed over the dura as a hemostatic agent. A deep drain was placed. The fascia was closed with #1 Vicryl, subcutaneous with 2-0 Vicryl, and skin with 2-0 nylon. Sterile dressings were applied with 4 x 4's ABD and tape. Sponge instrument needle counts were correct at the end of the case. Neurophysiologic monitoring was maintained at baseline during the the entire duration of the case. The patient was extubated and taken to the PACU without incident. Surgeon: Drake Warren Type of Anesthesia: General Drains: Hemovac Estimated Blood Loss (mL): 800 cc Fluids Replaced: 4 L Grafts/Implants Used: Unified spine, Nicole Elite biologic, DBM Complications None Admit VTE Documentation VTE Present on Admission: No
--- NOTE | 2021-07-22 09:16 | RAD_ITS ---
STUDY: INTRAOPERATIVE FLUOROSCOPY TECHNIQUE: The examination was performed with referring physician in attendance. Under fluoroscopic observation, fluoroscopic images were obtained. Radiologist was not present for the study. Radiologist did not perform the procedure. This dictation is for documentation of the radiation dosage only. There is no interpretation of the images. TOTAL NUMBER OF IMAGES: 1 COMPARISON: None RADIATION DOSE: 69 mGy FLUOROSCOPY TIME: 239 sec REASON FOR EXAM: PAIN Technologist Notes L3-S1 DECOMPRESSION, INTERBODY FUSION Male, 51 years old. FINDINGS: Surgical soft tissue manager reporting is noted. Multiple images of the lumbar spine. Sequential images demonstrate pedicle screws in place and placement of a spinal fixation nilda. RAD/Lumbar Spine 2 or 3 Views IMPRESSION: Fluoroscopic assistance images were obtained. Dictation for documentation purposes only. Electronically Signed: Iker Prince MD at 16:36 EST , Service support ,
[2021-07-22] MEDS: Heparin 10,000 UNITS/10 ML Vial 10000 UNITS (09:48)
[2021-07-22] MEDS: THROMBIN (RECOMBINANT) 20,000 UNIT VIAL 20000 UNIT TOPICAL (09:48)
[2021-07-22] MEDS: Bupivacaine 0.25% 30 ML Vial (16:21)
--- NOTE | 2021-07-22 16:50 | PCM.CONS.GEN ---
Assessment & Plan Assessment/Plan (1) Lumbar stenosis: PLAN: #Lumbar stenosis s/p spinal fusion s/p spinal interbody fusion by spine surgeyr today is POD 0 management as per spinal surgery incentive spirometry PT/OT consult. Fall precautions #Hypertension: on metoprolol 50mg bid. Will resume and monitor BP #Hyperlipidemia: on statin #Depression: on bupropion #Asthma: not in exacerbation. Breathing treatment with bronchodilators. On albuterol IH and montelukast DVT prophylaxis: as per primary team Thank you for the courtesy of the consult. We will continue to follow with you. HPI Consult Data Date of Consult: 07/22/21 HPI Narrative HPI Narrative: GRICEL DURAN, is a 51 M with a PMH as outlined including hypretension hyperlipidemia and GERD as well as chronic back pain due to herniated lumbar disc, who was admitted to the spine surgery service for spinal fusion. He had a procedure on 07/21/2021 and hospitalist service was consulted for medical management. Patient seen in PACU after surgery. He was quite lethargic and complained of pain. He had no active complaints and review of systems was otherwise negative. [facility] Medical History (Updated 07/22/21 @ 07:[address] Drake Warren, DO) ADD (attention deficit disorder) Alcohol use Anxiety Arthritis Asthma Back pain Depression Fatty liver Gastric reflux High cholesterol History of pain when walking History of steroid therapy Hx of fracture of arm Hypertension Injury of back Injury of head and neck Non-smoker Restless legs Sleep apnea Wears glasses Home Medications metoprolol tartrate 50 mg tablet 50 mg PO BID 09/20/19 [History Last Taken 07/21/21] montelukast 10 mg PO QHS 10/31/19 [History Last Taken 07/23/20] omeprazole 40 mg PO DAILY 10/31/19 [History Last Taken 07/21/21] atorvastatin 20 mg PO QHS 04/13/21 [History Last Taken Unknown] albuterol sulfate 90 mcg INHALATION PRN PRN 05/25/21 [History Last Taken 07/22/21] bupropion HCl 150 mg PO DAILY 05/25/21 [History Last Taken Unknown] ergocalciferol (vitamin D2) [Vitamin D2] 1,250 mcg PO FR 07/08/21 [History Last Taken Unknown] oxycodone 10 mg PO Q6H PRN 7 Days #28 tab 07/22/21 [Rx Last Taken Unknown] Allergy/AdvReac Type Severity Reaction Status Date / Time No Known Allergies Allergy Verified 07/08/21 11:47 Surgical History (Updated 05/25/21 @ 13:53 by Breann Strauss) Hx of arthroscopy of shoulder Social History Smoking Status: Former smoker ROS Constitutional Constitutional: Reports weakness; Denies anorexia, chills, fatigue, fever(s) or malaise Eyes Eyes: Denies change in vision ENT HEENT: Denies dysphagia, headache(s), nasal congestion or sore throat Cardiovascular Cardiovascular: Denies chest pain, dyspnea on exertion, lightheadedness, orthopnea, palpitations or rapid heart rate Respiratory/Chest Respiratory/Chest: Denies cough, dyspnea, shortness of breath at rest or shortness of breath with exertion Gastrointestinal Gastrointestinal: Denies abdominal pain, constipation, dyspepsia, nausea or vomiting Genitourinary Genitourinary: Denies dysuria Musculoskeletal Musculoskeletal: Denies arthralgias or back pain Neurologic Neurologic: Denies confusion, focal weakness or headache(s) Endocrine Endocrinology: Reports change in body appearance Physical Exam Const alert and oriented x3 General Appearance: cooperative HEENT normocephalic, head/scalp atraumatic and moist oral mucous membranes Eyes PERRL Neck supple Resp normal respiratory effort, no use of accessory muscles and clear to auscultation bilaterally Cardio regular rate, regular rhythm, S1 normal heart sound, S2 normal heart sound and no murmurs GI normal to inspection, nondistended, normoactive bowel sounds, soft to palpation, non-tender and non-distended Extremity normal to inspection, full ROM and no clubbing, cyanosis or edema Skin no rashes or lesions noted Neuro oriented x3 and CN's II-XII intact bilaterally Sensorium / Orientation: awake and alert Psych affect normal Lab / Micro Data Result Diagrams: 07/12/21 09:16 07/12/21 09:16 Radiology Impression Lumbar Spine X-Ray 07/22/21 09:16 IMPRESSION: Fluoroscopic assistance images were obtained. Dictation for documentation purposes only. Electronically Signed: Iker Prince MD at 16:36 EST , Service support , Charges/Coding Visit Charges Office Visits / Consults: 89610 IP Consult L4
[2021-07-22] MEDS: Morphine 2 MG/ML Syringe IV (20:30)
[2021-07-22] MEDS: Cefazolin 1 GM/50 ML BAG IV (21:37)
[2021-07-22] MEDS: Acetaminophen 500 MG Tablet 1000 MG PO (21:38)
[2021-07-22] MEDS: Metoprolol Tartrate 50 MG Tablet PO (21:38)
[2021-07-22] MEDS: oxyCODONE 5 MG Tablet PO (21:38)
[2021-07-22] MEDS: Montelukast 10 MG Tablet PO (21:39)
[2021-07-22] MEDS: Atorvastatin Calcium 20 MG Tablet PO (21:39)
[2021-07-22] MEDS: Ensure Surgery 237 ML LIQUID PO (21:43)
[2021-07-22] MEDS: Lactated Ringers 1,000 ML 100 ML IV (21:51)
--- NOTE | 2021-07-22 22:42 | PCS.PANDOC ---
PANDEMIC DOCUMENTATION INITIATED: Date: 03/22/2021 Time: 190 Emergency documentation initiated 07/22/21 @ 1930
[2021-07-23] VITALS (13 sets, daily range): BP systolic 92–115; BP diastolic 58–72; PULSE 83–106; RESP 16–18; TEMP 36.8–37.2; O2SAT 93–100
[2021-07-23] MEDS: Morphine 4 MG/ML Syringe IV ×3 (00:27→06:27)
[2021-07-23] MEDS: Lactated Ringers 1,000 ML 100 ML IV (03:25)
[2021-07-23] MEDS: Cefazolin 1 GM/50 ML BAG IV ×3 (06:27→21:39)
[2021-07-23] MEDS: Acetaminophen 500 MG Tablet 1000 MG PO ×3 (06:27→21:39)
--- NOTE | 2021-07-23 07:10 | PCM.PN.ORT ---
Subjective Subjective The patient was seen and examined postoperative day one status post L3-S1 360 fusion. He is doing well. He is sitting up in a chair resting comfortably. His Burns catheter is in place. His drain put out about 150 cc of serosanguineous fluid over the night. He is having some postop soreness in the lower back but this is controlled with medications. He denies any numbness tingling weakness or changes in bowel or bladder function. He denies any other complaints. Objective Data Objective Data Vital Signs: Vital Signs Temp Pulse Resp BP Pulse Ox 98.9 F 89 18 113/67 97 07/23/21 03:19 07/23/21 03:19 07/23/21 03:19 07/23/21 03:19 07/23/21 03:19 Oxygen Delivery Method Room Air Weight: 212 lb 11.937 oz Body Mass Index (BMI) 29.7 Intake & Output: Intake and Output for Last 24 Hours 07/21/21 07/22/21 07/23/21 23:59 23:59 23:59 Intake Total 4218.25 / 4218.25 1391.67 / 1391.67 Output Total 530 / 880 590 / 590 Balance 3688.25 / 3338.25 801.67 / 801.67 Lab / Micro Data Result Diagrams: 07/12/21 09:16 07/12/21 09:16 Radiography Diagnostic Testing: Radiology Impression Lumbar Spine X-Ray 07/22/21 09:16 IMPRESSION: Fluoroscopic assistance images were obtained. Dictation for documentation purposes only. Electronically Signed: Iker Prince MD at 16:36 EST , Service support , Physical Exam Const alert, oriented x3 and no apparent distress General Appearance: cooperative and comfortable HEENT head/scalp atraumatic Eyes EOMs intact bilaterally and conjunctivae normal Neck full ROM General: normal visual inspection Resp normal respiratory effort and normal air movement Cardio regular rate and regular rhythm GI soft to palpation, non-tender and non-distended Back/Spine Back/Spine Narrative: Dressing clean dry and intact. Drain in place and functioning with some serosanguineous fluid in it Cervical Spine: cervical ROM normal Thoracic Spine / Upper Back: normal to inspection Lumbar Spine / Lower Back: normal to inspection Extremity normal to inspection, full ROM, normal capillary refill, no clubbing, cyanosis or edema and no calf tenderness Peripheral Pulses: Yes pulses 2+ throughout Skin no rashes or lesions noted General Skin Exam: no breakdown Neuro oriented x3, CN's II-XII intact bilaterally, moves all extremities, no focal motor deficits, no sensory deficits noted and deep tendon reflexes 2+ bilaterally Motor Exam: strength 5/5 throughout and muscle tone normal throughout Assessment & Plan Assessment/Plan (1) Lumbar stenosis: PLAN: The patient is doing well postoperative day one status post L3-S1 360 fusion Okay to remove Burns Pain control and mobilization with physical therapy, brace on at all times while out of bed. Okay to remove brace to sleep Reinforce dressing as needed. Keep dressing intact. Keep drain in place. Dr. Warren will perform the first dressing change when he removes the drain Continue antibiotics as scheduled while drain in place H&H this morning Type and screen. We will hold off on any transfusion as long as H&H is within normal limits
[2021-07-23 08:23] LABS: Hematocrit 24.9 % (40-54); Hemoglobin 8.2 g/dL (13.0-16.5)
[2021-07-23] MEDS: oxyCODONE 5 MG Tablet PO ×3 (10:03→21:40)
[2021-07-23] MEDS: Ensure Surgery 237 ML LIQUID PO ×2 (10:04→15:59)
[2021-07-23] MEDS: Ergocalciferol 1.25 MG (50, 000 UNIT) Capsule PO (10:05)
[2021-07-23] MEDS: Pantoprazole Sodium 40 MG Tablet PO (10:05)
[2021-07-23] MEDS: buPROPion (XL) 150 MG TABLET.XL PO (10:05)
[2021-07-23] MEDS: Metoprolol Tartrate 50 MG Tablet PO ×2 (10:07→21:39)
--- NOTE | 2021-07-23 10:55 | CASEMGMT ---
RN CM Face to Face with patient for initial transition planning/care coordination assessment. RN CM introduced self and role at [facility]. Patient lying in bed, alert and oriented. Patient willing to participate in assessment and is able to answer all questions appropriately. Care providers, pharmacy, and demographics verified. Patient wishes to discharge home, denies need for home health at this time. Patient states he has no further needs or concerns at this time. CM to follow for discharge planning needs that may arise. PCP: Myla Villegas Specialists: estelle Warren; estelle Menchaca Preferred Pharmacy: [facility] Insurance: [employer] Prescription Benefit: yes Living Will/HPOA: none LNOK: Parents Living Arrangements: Patient lives with parents in a 3 story home with ramp to enter the home. Patient states he is independent at home. Transportation: mother DME/HHC: Patient states he has shower chair, raised toilet, cane, walker, and grab bars. Patient denies previous HHC or SNF. Disposition Plan: Patient to discharge home with family support and follow-up plans in place. Melinda REYES, RN, CM
--- NOTE | 2021-07-23 10:58 | PN.HOSP_ITS ---
Subjective Subjective Patient seen and examined. He has no active complaints this morning. He does admit to feeling a bit anxious because of the pain. Pain is well controlled when he is at rest but with movement, he has the onset of pain. Review of systems otherwise negative. Objective Data Objective Data Vital Signs: Vital Signs Temp Pulse Resp BP Pulse Ox 98.3 F 92 16 101/64 96 07/23/21 10:10 07/23/21 10:10 07/23/21 10:10 07/23/21 10:10 07/23/21 10:10 Oxygen Delivery Method Room Air Weight: 212 lb 11.937 oz Body Mass Index (BMI) 29.7 Intake & Output: Intake and Output for Last 24 Hours 07/21/21 07/22/21 07/23/21 23:59 23:59 23:59 Intake Total 4218.25 / 4218.25 1441.67 / 1441.67 Output Total 530 / 880 590 / 590 Balance 3688.25 / 3338.25 851.67 / 851.67 Lab / Micro Data Result Diagrams: 07/23/21 08:10 07/12/21 09:16 Labs: Laboratory Results - last 24 hr 07/23/21 08:10: Hgb 8.2 L, Hct 24.9 L 07/23/21 08:10: Blood Type O POSITIVE, Antibody Screen NEGATIVE Radiography Diagnostic Testing: Radiology Impression Lumbar Spine X-Ray 07/22/21 09:16 IMPRESSION: Fluoroscopic assistance images were obtained. Dictation for documentation purposes only. Electronically Signed: Iker Prince MD at 16:36 EST , Service support , Physical Exam Const alert, oriented x3 and no apparent distress General Appearance: cooperative Exam Limitations: no limitations HEENT normocephalic, head/scalp atraumatic and moist oral mucous membranes Head and Scalp: normocephalic Eyes PERRL Neck no lymphadenopathy and supple Resp normal respiratory effort, no use of accessory muscles and clear to auscultation bilaterally Cardio regular rate, regular rhythm, S1 normal heart sound, S2 normal heart sound and no murmurs GI normal to inspection, nondistended, normoactive bowel sounds, soft to palpation, non-tender and non-distended Extremity normal to inspection, full ROM and no clubbing, cyanosis or edema Peripheral Pulses: Yes pulses 2+ throughout Skin no rashes or lesions noted Skin Narrative: intact dressing over surgical site. Neuro oriented x3 and CN's II-XII intact bilaterally Sensorium / Orientation: awake and alert Psych affect normal Assessment & Plan Assessment/Plan (1) Lumbar stenosis: PLAN: #Lumbar stenosis s/p spinal fusion * s/p spinal interbody fusion by spine surgery. Had L3-S1 fusion. * today is POD 1 * management as per spinal surgery * incentive spirometry; encouraged to use incentive spirometry * PT/OT consult. * Fall precautions * #Hypertension: on metoprolol 50mg bid. #Hyperlipidemia: on statin #Depression: on bupropion #Asthma: not in exacerbation. Breathing treatment with bronchodilators. On albuterol IH and montelukast DVT prophylaxis: as per primary team Charges/Coding Visit Charges Inpatient E&M: 91216 Subs Hosp L2
[2021-07-23] MEDS: Montelukast 10 MG Tablet PO (21:39)
[2021-07-23] MEDS: Atorvastatin Calcium 20 MG Tablet PO (21:40)
[2021-07-23] MEDS: Docusate Sodium 100 MG Capsule PO (21:42)
[2021-07-24] VITALS (11 sets, daily range): BP systolic 95–135; BP diastolic 56–76; PULSE 79–100; RESP 16–18; TEMP 36.6–37.1; O2SAT 97–100
[2021-07-24] MEDS: oxyCODONE 5 MG Tablet PO ×3 (05:09→22:23)
[2021-07-24] MEDS: Cefazolin 1 GM/50 ML BAG IV ×3 (05:09→22:23)
[2021-07-24] MEDS: Acetaminophen 500 MG Tablet 1000 MG PO ×3 (05:11→22:25)
[2021-07-24] MEDS: Metoprolol Tartrate 50 MG Tablet PO ×2 (08:16→22:24)
[2021-07-24] MEDS: Docusate Sodium 100 MG Capsule PO ×2 (08:17→22:24)
[2021-07-24] MEDS: Pantoprazole Sodium 40 MG Tablet PO (08:17)
[2021-07-24] MEDS: buPROPion (XL) 150 MG TABLET.XL PO (08:17)
[2021-07-24] MEDS: Ensure Surgery 237 ML LIQUID PO ×3 (08:19→16:35)
--- NOTE | 2021-07-24 08:54 | PN.ORTHO_ITS ---
Subjective Subjective The patient was seen and examined postoperative day 2. He is sitting up in a chair resting comfortably wearing his brace. His pain is much improved today. He is still having some soreness in the lower back but denies any other complaints including numbness tingling weakness or changes in bowel or bladder function. His Burns has been removed. He has not yet had a bowel movement. Objective Data Objective Data Vital Signs: Vital Signs Temp Pulse Resp BP Pulse Ox 97.8 F 81 16 106/59 L 100 07/24/21 04:00 07/24/21 08:16 07/24/21 04:00 07/24/21 04:00 07/24/21 04:00 Oxygen Delivery Method Room Air Weight: 212 lb 11.937 oz Body Mass Index (BMI) 29.7 Intake & Output: Intake and Output for Last 24 Hours 07/22/21 07/23/21 07/24/21 23:59 23:59 23:59 Intake Total 4218.25 / 4218.25 2491.67 / 2491.67 100 / 100 Output Total 530 / 880 1130 / 1130 60 / 60 Balance 3688.25 / 3338.25 1361.67 / 1361.67 40 / 40 Lab / Micro Data Result Diagrams: 07/23/21 08:10 07/12/21 09:16 Labs: Laboratory Results - last 24 hr 07/23/21 08:10: Blood Type O POSITIVE, Antibody Screen NEGATIVE Physical Exam Const alert, oriented x3 and no apparent distress General Appearance: cooperative and comfortable HEENT head/scalp atraumatic Eyes EOMs intact bilaterally and conjunctivae normal Neck full ROM General: normal visual inspection Chest inspection of chest normal Resp normal respiratory effort and normal air movement Cardio regular rate and regular rhythm Peripheral Pulses: pulses 2+ throughout GI soft to palpation, non-tender and non-distended Back/Spine Back/Spine Narrative: Dressing clean dry and intact. Drain in place and functioning. A small amount of serosanguineous fluid is present in the drain Cervical Spine: cervical ROM normal Thoracic Spine / Upper Back: normal to inspection Lumbar Spine / Lower Back: normal to inspection Extremity normal to inspection, full ROM, normal capillary refill, no clubbing, cyanosis or edema and no calf tenderness Peripheral Pulses: Yes pulses 2+ throughout Skin no rashes or lesions noted General Skin Exam: no breakdown Neuro oriented x3, CN's II-XII intact bilaterally, moves all extremities, no focal motor deficits, no sensory deficits noted and deep tendon reflexes 2+ bilaterally Motor Exam: strength 5/5 throughout and muscle tone normal throughout Assessment & Plan Assessment/Plan (1) Lumbar stenosis: PLAN: Patient is progressing well. Continue with pain control and mob ilization with physical therapy. He has been walking the halls and doing well Continue antibiotics while drain in place Keep dressing clean dry and intact while drain in place. Dr. Warren will perform first dressing change when he pulls the drain Discharge planning. Likely home Monday
--- NOTE | 2021-07-24 11:21 | PN.HOSP_ITS ---
Subjective Subjective Patient seen and examined. He complains of back pain. He was working with therapy at time of review. REview of systems is otherwise negative. He has remained hemodynamically stable. Objective Data Objective Data Vital Signs: Vital Signs Temp Pulse Resp BP Pulse Ox 98.7 F 79 16 95/56 L 98 07/24/21 10:00 07/24/21 10:00 07/24/21 10:00 07/24/21 10:00 07/24/21 10:00 Oxygen Delivery Method Room Air Weight: 212 lb 11.937 oz Body Mass Index (BMI) 29.7 Intake & Output: Intake and Output for Last 24 Hours 07/22/21 07/23/21 07/24/21 23:59 23:59 23:59 Intake Total 4218.25 / 4218.25 2491.67 / 2491.67 100 / 100 Output Total 530 / 880 1130 / 1130 60 / 60 Balance 3688.25 / 3338.25 1361.67 / 1361.67 40 / 40 Lab / Micro Data Result Diagrams: 07/23/21 08:10 07/12/21 09:16 Physical Exam Const alert, oriented x3 and no apparent distress General Appearance: cooperative Exam Limitations: no limitations HEENT normocephalic, head/scalp atraumatic and moist oral mucous membranes Head and Scalp: normocephalic Eyes PERRL Neck no lymphadenopathy and supple Resp normal respiratory effort, no use of accessory muscles and clear to auscultation bilaterally Cardio regular rate, regular rhythm, S1 normal heart sound, S2 normal heart sound and no murmurs GI normal to inspection, nondistended, normoactive bowel sounds, soft to palpation, non-tender and non-distended GI Narrative: has abdominal brace in place. Extremity normal to inspection, full ROM and no clubbing, cyanosis or edema Skin no rashes or lesions noted Skin Narrative: intact dressing over surgical site. Neuro oriented x3 and CN's II-XII intact bilaterally Sensorium / Orientation: awake and alert Psych affect normal Assessment & Plan Assessment/Plan (1) Lumbar stenosis: PLAN: #Lumbar stenosis s/p spinal fusion * s/p spinal interbody fusion by spine surgery. Had L3-S1 fusion. * today is POD 2. Complains of pain today. * management as per spinal surgery * incentive spirometry; encouraged to use incentive spirometry * PT/OT consult. * Fall precautions * on IV morphine, PO oxycodone and PO tylenol for pain. * #Hypertension: on metoprolol 50mg bid. BP running in the 90s systolic today. Will hold metoprolol for this morning and review. #Hyperlipidemia: on statin #Depression: on bupropion #Asthma: not in exacerbation. Breathing treatment with bronchodilators. On albuterol IH and montelukast DVT prophylaxis: as per primary team Charges/Coding Visit Charges Inpatient E&M: 12110 Subs Hosp L2
[2021-07-24] MEDS: Morphine 2 MG/ML Syringe IV (13:38)
[2021-07-24] MEDS: Atorvastatin Calcium 20 MG Tablet PO (22:24)
[2021-07-24] MEDS: Montelukast 10 MG Tablet PO (22:25)
[2021-07-25] VITALS (9 sets, daily range): BP systolic 102–129; BP diastolic 60–87; PULSE 68–84; RESP 13–18; TEMP 36.3–36.8; O2SAT 99–100
[2021-07-25] MEDS: oxyCODONE 5 MG Tablet PO ×3 (02:37→20:35)
[2021-07-25] MEDS: Cefazolin 1 GM/50 ML BAG IV ×2 (06:01→13:22)
[2021-07-25] MEDS: Acetaminophen 500 MG Tablet 1000 MG PO ×3 (06:01→20:36)
[2021-07-25] MEDS: Metoprolol Tartrate 50 MG Tablet PO ×2 (09:58→20:35)
[2021-07-25] MEDS: Docusate Sodium 100 MG Capsule PO ×2 (09:58→20:35)
[2021-07-25] MEDS: Pantoprazole Sodium 40 MG Tablet PO (09:59)
[2021-07-25] MEDS: buPROPion (XL) 150 MG TABLET.XL PO (09:59)
[2021-07-25] MEDS: Ensure Surgery 237 ML LIQUID PO ×2 (10:01→16:31)
--- NOTE | 2021-07-25 12:21 | PN.HOSP_ITS ---
Subjective Subjective Patient seen and examined. He had no active complaints. He said his pain was okay with bowel movement but was aggravated by movement. Review of systems otherwise negative. He has been working well with therapy. Objective Data Objective Data Vital Signs: Vital Signs Temp Pulse Resp BP Pulse Ox 97.4 F L 75 13 102/60 99 07/25/21 09:19 07/25/21 09:58 07/25/21 09:19 07/25/21 09:19 07/25/21 09:19 Oxygen Delivery Method Room Air Weight: 212 lb 11.937 oz Body Mass Index (BMI) 29.7 Intake & Output: Intake and Output for Last 24 Hours 07/23/21 07/24/21 07/25/21 23:59 23:59 23:59 Intake Total 2491.67 / 2491.67 2650 / 2650 550 / 550 Output Total 1130 / 1130 1455 / 1455 1605 / 1605 Balance 1361.67 / 1361.67 1195 / 1195 -1055 / -1055 Lab / Micro Data Result Diagrams: 07/23/21 08:10 07/12/21 09:16 Physical Exam Const alert, oriented x3 and no apparent distress General Appearance: cooperative Exam Limitations: no limitations HEENT normocephalic, head/scalp atraumatic and moist oral mucous membranes Head and Scalp: normocephalic Eyes PERRL Neck no lymphadenopathy and supple Resp normal respiratory effort, no use of accessory muscles and clear to auscultation bilaterally Cardio regular rate, regular rhythm, S1 normal heart sound, S2 normal heart sound and no murmurs GI normal to inspection, nondistended, normoactive bowel sounds, soft to palpation, non-tender and non-distended GI Narrative: has abdominal brace in place. Extremity normal to inspection, full ROM and no clubbing, cyanosis or edema Peripheral Pulses: Yes pulses 2+ throughout Skin no rashes or lesions noted Skin Narrative: intact dressing over surgical site. Neuro oriented x3 and CN's II-XII intact bilaterally Sensorium / Orientation: awake and alert Psych affect normal Assessment & Plan Assessment/Plan (1) Lumbar stenosis: PLAN: #Lumbar stenosis s/p spinal fusion * s/p spinal interbody fusion by spine surgery. Had L3-S1 fusion. * today is POD 3. Pain is largely well controlled. * management as per spinal surgery * incentive spirometry; encouraged to use incentive spirometry * PT/OT consult. * Fall precautions * on IV morphine, PO oxycodone and PO tylenol for pain. * #Hypertension: on metoprolol 50mg bid. #Hyperlipidemia: on statin #Depression: on bupropion #Asthma: Breathing treatment with bronchodilators. On albuterol IH and montelukast DVT prophylaxis: as per primary team Charges/Coding Visit Charges Inpatient E&M: 48195 Subs Hosp L2
--- NOTE | 2021-07-25 18:16 | PN.ORTHO_ITS ---
Subjective Subjective The patient was seen and examined postoperative day 3. He is sitting up in a chair resting comfortably. He has been mobilizing well with physical therapy. His pain is much more well controlled today. He denies any numbness tingling weakness or changes in bowel or bladder function. He has not yet had a bowel mo vement but is passing gas. He has no other complaints at this time. Objective Data Objective Data Vital Signs: Vital Signs Temp Pulse Resp BP Pulse Ox 98.3 F 74 16 114/73 99 07/25/21 15:00 07/25/21 15:00 07/25/21 15:00 07/25/21 15:00 07/25/21 15:00 Oxygen Delivery Method Room Air Weight: 212 lb 11.937 oz Body Mass Index (BMI) 29.7 Intake & Output: Intake and Output for Last 24 Hours 07/23/21 07/24/21 07/25/21 23:59 23:59 23:59 Intake Total 2491.67 / 2491.67 2650 / 2650 600 / 600 Output Total 1130 / 1130 1455 / 1455 2265 / 2265 Balance 1361.67 / 1361.67 1195 / 1195 -1665 / -1665 Lab / Micro Data Result Diagrams: 07/23/21 08:10 07/12/21 09:16 Physical Exam Const alert, oriented x3 and no apparent distress General Appearance: cooperative and comfortable HEENT head/scalp atraumatic Eyes EOMs intact bilaterally and conjunctivae normal Neck full ROM General: normal visual inspection Resp normal respiratory effort and normal air movement Cardio regular rate and regular rhythm Peripheral Pulses: pulses 2+ throughout GI soft to palpation, non-tender and non-distended Back/Spine Back/Spine Narrative: Dressing clean dry and intact. Incision well approximated with interrupted sutures in place. Drain in place and functioning with a small amount of serosanguineous fluid in it. Cervical Spine: cervical ROM normal Thoracic Spine / Upper Back: normal to inspection Lumbar Spine / Lower Back: normal to inspection Extremity normal to inspection, full ROM, normal capillary refill, no clubbing, cyanosis or edema and no calf tenderness Skin no rashes or lesions noted General Skin Exam: no breakdown Neuro oriented x3, CN's II-XII intact bilaterally, moves all extremities, no focal motor deficits, no sensory deficits noted and deep tendon reflexes 2+ bilaterally Motor Exam: strength 5/5 throughout and muscle tone normal throughout Assessment & Plan Assessment/Plan (1) Lumbar stenosis: PLAN: The patient is doing very well. His pain is well controlled and he is mobilizing well with therapy Drain removed, okay to stop antibiotics Daily dressing changes with iodine to incision, gauze and tape Okay to discharge home tomorrow See discharge instructions
[2021-07-25] MEDS: Atorvastatin Calcium 20 MG Tablet PO (20:35)
[2021-07-25] MEDS: Montelukast 10 MG Tablet PO (20:36)
[2021-07-26] MEDS: oxyCODONE 5 MG Tablet PO ×3 (02:09→09:50)
[2021-07-26 02:31] VITALS: BP 110/69; PULSE 71; PULSE 77; RESP 16; TEMP 36.9; O2SAT 97
[2021-07-26] MEDS: Acetaminophen 500 MG Tablet 1000 MG PO ×2 (06:20→13:06)
[2021-07-26 09:30] VITALS: BP 113/77; PULSE 60; RESP 18; TEMP 36.6; O2SAT 99
[2021-07-26 09:38] VITALS: PULSE 74
[2021-07-26] MEDS: Docusate Sodium 100 MG Capsule PO (09:38)
[2021-07-26] MEDS: Metoprolol Tartrate 50 MG Tablet PO (09:38)
[2021-07-26] MEDS: Pantoprazole Sodium 40 MG Tablet PO (09:39)
[2021-07-26] MEDS: buPROPion (XL) 150 MG TABLET.XL PO (09:39)
== END 2021-07-26 13:50 | disposition home or self-care (01) | DRG 304 ==
LOC: ACINP 05:58 → MS2 07-23 06:16
PROVIDERS: Admitting Provider Orthopaedic Surgery; Referring Provider Orthopaedic Surgery
PROC: 0SG10AJ Fusion of 2 or more Lumbar Vertebral Joints with Interbody Fusion Device, Posterior Approach, Anterior Column, Open Approach (ICD-10-PCS; principal; 2021-07-22 07:00)
DX: M48.061 Spinal stenosis, lumbar region without neurogenic claudication (principal); M51.36 Other intervertebral disc degeneration, lumbar region; M47.26 Other spondylosis with radiculopathy, lumbar region; M46.96 Unspecified inflammatory spondylopathy, lumbar region; M43.16 Spondylolisthesis, lumbar region; G89.29 Other chronic pain; M21.371 Foot drop, right foot; I10 Essential (primary) hypertension; E78.5 Hyperlipidemia, unspecified; J45.909 Unspecified asthma, uncomplicated; M19.90 Unspecified osteoarthritis, unspecified site; G25.81 Restless legs syndrome; G47.30 Sleep apnea, unspecified; K21.9 Gastro-esophageal reflux disease without esophagitis; F98.8 Other specified behavioral and emotional disorders with onset usually occurring in childhood and adolescence; F32.A Depression, unspecified; F41.9 Anxiety disorder, unspecified; E66.3 Overweight; Z68.29 Body mass index [BMI] 29.0-29.9, adult; Z79.1 Long term (current) use of non-steroidal anti-inflammatories (NSAID); Z79.899 Other long term (current) drug therapy; Z87.891 Personal history of nicotine dependence
CPT/HCPCS: 36415; 72100; 76000; 80048; 85014; 85018; 85025; 85610; 85730; 86850; 86900; 86901; 93005; 97162; 97530; 97802; 99251; C1713; J7120; G0463; J2405

== ENCOUNTER 2021-08-03 20:44 | Emergency (ER) | payer MEDICAID, SELFPAY ==
[2021-08-03 20:44] VITALS: BP 135/71; PULSE 91; RESP 16; TEMP 36.6; O2SAT 96; BMI 27.1
--- NOTE | 2021-08-03 21:50 | RAD_ITS ---
STUDY: X-RAY - ABDOMEN/PELVIS REASON FOR EXAM: Male, 51 years old. Constipation. TECHNIQUE: AP supine abdomen 2 images obtained. COMPARISON: Sacrum and coccyx July 12, 2021. FINDINGS: Normal visualized lung bases. There is an unremarkable bowel gas pattern. There is not excessive stool in the colon. There is no demonstrated free abdominal air. The visualized liver, spleen and kidneys are grossly normal in size and morphology. Normal soft tissue structures. There is now lumbar fusion L3-S1 with bilateral rods, pedicle screws with prosthetic disks at multiple levels. Surgical hardware appears intact. RAD/Abdomen Single View IMPRESSION: Nonspecific bowel gas pattern without evidence of obstruction. Lower lumbar fusion. Electronically Signed: Charles Cardoso MD at 23:24 EST , Service support ,
--- NOTE | 2021-08-03 23:03 | ED.VIS.GI ---
HPI HPI - GI History of Present Illness Chief Complaint: Constipation Informant: patient Abdominal Pain/Flank Pain Onset: Days (12) Context: Gradual Onset Timing: Continuous Quality: - (No pain, just feels full and abdomen) Location: Diffuse Current Severity: Moderate Maximum Severity: Moderate Worsened by: Nothing Relieved by: Nothing Nausea/Vomiting/Emesis GI Symptom: Negative for Nausea and Vomiting Diarrhea/Melena/Hematochezia GI Symptom: Negative for Diarrhea, Melena and Hematochezia Associated Symptoms Associated Symptoms: Negative for Dysuria, Frequency, Hematuria and Urgency Narrative Narrative: Patient had low back surgery about 12 days ago, he has not had a bowel movement yet although he has been placing plenty of flatus. He has been eating and drinking fine and urinating well, his back is hurting now postoperatively, but he does not have any symptoms going down his legs or neurologic symptoms. He has been taking about 4 oxycodone per day. States he feels like he needs have a bowel movement but has been unable. He has tried a half bottle of magnesium citrate at home this afternoon but does not feel any worse afterwards, just has not had a bowel movement yet. [facility] Medical History ADD (attention deficit disorder) Alcohol use Anxiety Arthritis Asthma Back pain Depression Fatty liver Gastric reflux High cholesterol History of pain when walking History of steroid therapy Hx of fracture of arm Hypertension Injury of back Injury of head and neck Non-smoker Restless legs Sleep apnea Wears glasses Home Medications metoprolol tartrate 50 mg tablet 50 mg PO BID 09/20/19 [History Last Taken 07/21/21] montelukast 10 mg PO QHS 10/31/19 [History Last Taken 07/23/20] omeprazole 40 mg PO DAILY 10/31/19 [History Last Taken 07/21/21] atorvastatin 20 mg PO QHS 04/13/21 [History Last Taken Unknown] albuterol sulfate 90 mcg INHALATION PRN PRN 05/25/21 [History Last Taken 07/22/21] bupropion HCl 150 mg PO DAILY 05/25/21 [History Last Taken Unknown] ergocalciferol (vitamin D2) [Vitamin D2] 1,250 mcg PO FR 07/08/21 [History Last Taken Unknown] oxycodone 10 mg PO Q6H PRN 7 Days #28 tab 12/16/21 [Rx Last Taken Unknown] Allergy/AdvReac Type Severity Reaction Status Date / Time No Known Allergies Allergy Verified 08/03/21 20:49 Surgical History (Updated 08/03/21 @ 21:23 by Nicole Blandon) History of lumbar fusion Hx of arthroscopy of shoulder Social History Smoking Status: Former smoker ROS ROS ED Constitutional Constitutional ED: Denies chills or fever(s) Eyes Eyes: Denies change in vision or diplopia ENT ENT ED: Denies rhinorrhea or sore throat Cardiovascular Cardiovascular: Denies chest pain or palpitations Respiratory/Chest Respiratory/Chest: Denies cough or dyspnea Gastrointestinal Gastrointestinal: Reports as per HPI and constipation; Denies abdominal pain, diarrhea, nausea or vomiting Genitourinary Genitourinary ED: Denies dysuria or hematuria Musculoskeletal Musculoskeletal: Denies back pain or neck pain Integumentary Denies abscess or rash Neurologic Neurologic: Denies headache(s), paresthesias or weakness Psychiatric Psychiatric: Denies anxiety or suicidal thoughts EXAM Physical Exam Const Vital Signs: 08/03/21 20:44 Temperature 98 F Temperature Source Temporal Pulse Rate 91 Respiratory Rate 16 Blood Pressure 135/71 H Blood Pressure Mean 92 Pulse Ox 96 Oxygen Delivery Method Room Air Positive well nourished and well developed General Appearance ED: well developed and NAD HEENT Reports moist mucous membranes normocephalic and atraumatic Eyes PERRL and EOMs intact bilaterally Neck full ROM and supple Resp normal respiratory effort and clear to auscultation bilaterally Cardio regular rate, regular rhythm and no murmurs GI non-tender GI Narrative: Somewhat distended. Soft, nontender throughout, although it is uncomfortable to palpate around. Patient refuses rectal exam. Auscultation: normoactive bowel sounds Palpation: soft Back/Spine no CVA tenderness General Back: other FROM Extremity normal to inspection General Extremety ED: Negative for edema, pulses abnormal or tenderness General Extremity: Negative for edema or pulses abnormal Neuro oriented x3, CN's II-XII intact bilaterally and no sensory deficits noted Sensorium / Orientation: awake and alert Motor Exam: strength 5/5 throughout Skin no rashes or lesions noted and no wounds MDM MDM MDM Narrative Medical decision making narrative: I discussed options including rectal exam to help disimpact him, versus a fleets enema versus soapsuds enema, versus he continue to treat at home with MiraLAX, magnesium citrate, etc. Initially he just wanted to leave, but then he was willing to try a fleets enema. He did, and before I could reevaluate him, he left prior to discharge. Radiography Diagnostic Testing: Clinical Impression(s) from Imaging Studies KUB X-Ray 08/03/21 21:50 IMPRESSION: Nonspecific bowel gas pattern without evidence of obstruction. Lower lumbar fusion. Electronically Signed: Charles Cardoso MD at 23:24 EST , Service support , Discharge Plan Triage Chief Complaint: Constipation ED Provider: Nader Madden Dx/Rx/DC Orders Clinical Impression: Constipation due to opioid therapy Instructions: Treating Constipation, ED Constipation (Adult) Prescriptions: No Action metoprolol tartrate 50 mg tablet 50 mg PO BID RF: 0 montelukast 10 MG tablet 10 mg PO QHS RF: 0 omeprazole 20 MG capsule 40 mg PO DAILY RF: 0 atorvastatin 20 mg tablet 20 mg PO QHS RF: 0 bupropion HCl 150 mg Tablet Extended Release 24 Hr 150 mg PO DAILY RF: 0 albuterol sulfate 90 mcg/actuation HFA aerosol inhaler 90 mcg INHALATION PRN PRN (Reason: ASTHMA) RF: 0 ergocalciferol (vitamin D2) [Vitamin D2] 1,250 mcg (50,000 unit) Capsule 1,250 mcg PO FR RF: 0 oxycodone 10 mg tablet 10 mg PO Q6H PRN (Reason: pain) 7 Days Qty: 28 RF: 0 Primary Care Provider: [facility] Myla Medrano Referrals: [facility] Myla Medrano [Primary Care Provider] - 3-5 Days if not improving Disposition Disposition: Elopement Discharge Date/Time: 08/04/21 01:30
== END 2021-08-04 01:30 | disposition left against medical advice (07) ==
PROVIDERS: Emergency Provider Emergency Medicine
DX: K59.03 Drug induced constipation (principal); T40.2X5A Adverse effect of other opioids, initial encounter; I10 Essential (primary) hypertension; E78.00 Pure hypercholesterolemia, unspecified; J45.909 Unspecified asthma, uncomplicated; M19.90 Unspecified osteoarthritis, unspecified site; G47.30 Sleep apnea, unspecified; K21.9 Gastro-esophageal reflux disease without esophagitis; F32.A Depression, unspecified; F41.9 Anxiety disorder, unspecified; Z79.899 Other long term (current) drug therapy
CPT/HCPCS: 74018; 99282

== ENCOUNTER 2021-10-11 07:58 | Outpatient (CLI) | payer MEDICARE, MEDICAID, SELFPAY ==
--- NOTE | 2021-10-11 08:18 | CT_ITS ---
STUDY: CT LEFT SHOULDER REASON FOR EXAM: Male, 51 years old. PRE OP. RADIATION DOSAGE (If Supplied By Facility): CTDIvol = ( 25.80 ) mGy, DLP = ( 1353.49 ) mGycm TECHNIQUE: The patient was scanned in a multi detector CT scanner. High resolution transaxial imaging was performed without the administration of intravenous contrast material. Sagittal and coronal images were reconstructed. Individualized dose optimization techniques were used for this CT. COMPARISON: None. FINDINGS: There is severe osteoarthritis, with severe articular joint space narrowing, osteoarthritic spurring, articular remodeling, and with articular erosions. There is evidence of an old fracture of the inferior glenoid cavity. The fracture is not healed. Subglenoid cystic changes. Marked degree of degenerative spur formation of the humeral head especially posteriorly. Normal coracoid process. Normal visualized lateral clavicle. Normal acromioclavicular articulation. There is a Type II morphology (curved), with a neutral orientation. Normal visualized muscles and soft tissue structures. CT/Extremity Upper without Contra IMPRESSION: Moderate degree of osteoarthritis of the glenohumeral joint with large degenerative spur formation along the humeral head. Nonhealed fracture along the inferior aspect of the glenoid labrum. Electronically Signed: Linus Almanzar MD at 14:21 EST ,
== END 2021-10-11 23:59 | disposition home or self-care (01) ==
PROVIDERS: Referring Provider Specialist; Visit Provider Specialist
DX: M19.112 Post-traumatic osteoarthritis, left shoulder (principal)
CPT/HCPCS: 73200

== ENCOUNTER 2021-11-09 10:51 | Outpatient (CLI) | payer MEDICAID, SELFPAY ==
[2021-11-09 11:14] LABS: Hematocrit 35.3 % (40-54); Hemoglobin 11.8 g/dL (13.0-16.5); Mean Corp Hgb Conc 33.4 g/dL (32-36); Mean Corpuscular Hgb 31.4 pg (27.0-32.0); Mean Corpuscular Volume 93.9 fL (80-94); Mean Platelet Vol. 9.1 fl (6.2-12.0); Platelet Count 293 K/mm3 (150-450); RBC Distribution Width CV 14.7 % (11.6-14.6); RBC Distribution Width SD 50.8 fl (35.1-43.9); Red Blood Count 3.76 M/mm3 (4.6-6.2); White Blood Count 6.1 K/mm3 (4.4-11.0)
[2021-11-09 11:36] LABS: Partial Thromboplast Time 29.1 Seconds (24.1-36.2); Prothrombin Time (Protime)PT. 12.3 SECONDS (11.7-14.9)
[2021-11-09 11:52] LABS: ALB/GLOB Ratio 1.2 RATIO (0.9-2.4); AST(SGOT) 29 U/L (15-37); Alanine Aminotransfer ALT/SGPT 28 U/L (16-61); Albumin, Serum 3.8 g/dL (3.2-5.0); Alkaline Phosphatase 103 U/L (45-117); Anion Gap 5 (5-15); BUN 9 mg/dL (7-18); BUN/Creat Ratio 10.4 RATIO (10-20); Calcium,Total 9.1 mg/dL (8.5-10.1); Chloride 103 mmol/L (98-107); Creatinine, Serum 0.87 mg/dL (0.70-1.30); EST Glomerular Filtration Rate 99 mL/min (>60); Est Glom Filt Rate - Afr Amer 119 mL/min (>60); Globulin 3.2 g/dL (2.2-4.2); Glucose 106 mg/dL (74-106); Potassium 4.2 mmol/L (3.5-5.1); Sodium Level 138 mmol/L (136-145)
== END 2021-11-09 23:59 | disposition home or self-care (01) ==
PROVIDERS: Referring Provider Nurse Practitioner Adult Health; Visit Provider Nurse Practitioner Adult Health
DX: Z01.818 Encounter for other preprocedural examination (principal)
CPT/HCPCS: 36415; 80053; 85027; 85610; 85730

== ENCOUNTER 2021-11-10 08:52 | Outpatient (CLI) | payer MEDICAID, SELFPAY ==
[2021-11-10 09:47] LABS: Iron 49 ug/dL (65-175); Iron Binding Capacity,Total 315 ug/dL (250-450)
== END 2021-11-10 23:59 | disposition home or self-care (01) ==
PROVIDERS: Visit Provider Nurse Practitioner Adult Health
DX: Z01.818 Encounter for other preprocedural examination (principal); D64.9 Anemia, unspecified
CPT/HCPCS: 36415; 83540; 83550

== ENCOUNTER 2021-11-11 10:43 | Outpatient (CLI) | payer MEDICAID, SELFPAY | END 2021-11-11 23:59 | disposition home or self-care (01) | PROVIDERS: Visit Provider Nurse Practitioner Adult Health | DX: Z01.818 Encounter for other preprocedural examination (principal); D64.9 Anemia, unspecified | CPT/HCPCS: 82274 ==

== ENCOUNTER 2021-12-01 07:27 | Day surgery (SDC) | payer MEDICAID, SELFPAY ==
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
[2021-11-25 12:29] LABS: Prothrombin Time (Protime)PT. 12.5 SECONDS (11.7-14.9)
[2021-11-25 12:30] LABS: Partial Thromboplast Time 29.2 Seconds (24.1-36.2)
[2021-11-25 12:52] LABS: Magnesium 1.7 mg/dL (1.6-2.6)
[2021-12-01] VITALS (7 sets, daily range): BP systolic 111–138; BP diastolic 79–100; PULSE 66–110; RESP 16; TEMP 36.2–36.4; O2SAT 96–100; BMI 29.6
--- NOTE | 2021-12-01 | SHO_PTH ---
PATIENT: GRICEL DURAN LOC: [facility] U#:[id number] AGE/SX: 51/M ROOM: RE12/01/[address]: Dr. Darshan Bassett MD : 1970 BED: DIS: 12/01/2021 SPEC #: [id number] RECD: 12/01/21 13:58 STATUS: ABHIJIT REQ #: [id number] SCOUT: 12/01/21 00:[address]: Darshan Bassett DEPT: SURGICAL PATHOLOGY RECD BY: Kamran Holden ENTERED: 12/02/21 08:34 SP TYPE: HUMERUS OTHR DR: Oksana Garcia, TRAINING INSTRUCTOR-C [facility] Tissues: Humerus, NOS Procedures: Decalcification bone/plaque Surgery Specimen Level IV HEADER OPERATION: ERAS, total shoulder replacement, reverse PRE-OP DIAGNOSIS: Severe left shoulder glenohumeral osteoarthritis TISSUE SUBMITTED: Left shoulder bone and tissue MICROSCOPIC DIAGNOSIS Bone and tissue of left shoulder joint, total joint resection: Severe degenerative joint disease. AM/am 12/07/21 MICROSCOPIC DESCRIPTION Slides are reviewed. GROSS DESCRIPTION Received in fixative is one container labeled with the patient's name and designated left shoulder bone and tissue. The specimen consists of a humeral head measuring 7 x 6 x 3 cm. The articular surface shows extensive area of erosion, eburnation and osteophyte formation. Also present in the container are?detached pieces of bone measuring in aggregate 4 x 3 x 2 cm, consistent with loose body. Technical Training Manager sections are submitted in two cassettes as follows: 1 ? detached pieces of bone consistent with loose body, 2 - humeral head after decalcification. / SJ:rg 12/03/2021 TC:5 CPT: 78357, 19804
--- NOTE | 2021-12-01 07:03 | RAD_ITS ---
STUDY: X-RAY - LEFT SHOULDER REASON FOR EXAM: Male, 51 years old. New left total shoulder arthroplasty. TECHNIQUE: 2 view(s) of the shoulder. COMPARISON: None. FINDINGS: There is a left total shoulder arthroplasty in anatomic alignment with expected post-operative findings. There are no complications noted. RAD/Shoulder min 2 Views IMPRESSION: Placement of new left total shoulder arthroplasty in anatomic alignment without complications. Electronically Signed: Jose Manuel Badillo MD at 13:28 EDT ,
--- NOTE | 2021-12-01 07:05 | PCM.OPRPT ---
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 Severe posterior bony erosion. Numerous osteophytes and loose bodies removed Surgeon: Darshan Bassett farmworker fur: Hernán Rogers Type of Anesthesia: General Special Medications: 2 g Ancef, 1 g TXA at incision, 1 g TXA closure, 10 mg Decadron, 1 g vancomycin at incision Specimen's removed: Bony cuts Estimated Blood Loss (mL): 250 Fluids Replaced: 1000 Description of Procedure: Components used 1. Tacho reunion glenoid baseplate 2. Tacho reunion 36 mm, offset 6 mm, eccentric 2 mm Glenosphere 3. [place] reunion 36mm, 4mm humeral liner 4. [place] reunion reverse TSA humeral adapter tray 2mm 5. [place] reunion humeral stem primary press-fit 18mm size Brief history/Operative indications: 51 yo m with history of left shoulder pain and cuff tear arthropathy. Patient failed conservative measures as mentioned in the H&P. After discussion of risk and benefits of reverse total shoulder replacement including but not limited to blood loss, DVTs, PEs, nerve vessel damage, infection, general risk of anesthesia including loss of life, instability and stiffness patient demonstrating understanding wish to proceed was able to sign informed consent. Medical clearance was obtained. Procedure: On the date of the procedure, patient's left upper extremity was marked in the preoperative area. Patient was taken back to the operating room where they were placed on the table in the supine position. Anesthesia assumed control of the C-spine and airway, then administered anesthetic. All bony prominences were identified well-padded, the head was secured and the patient was placed in the beachchair position at about 35? inclination. Anesthesia remained in control of the C-spine airway throughout the remainder of the procedure. Patient was then appropriately fastened to the table and the left upper extremity was prepped in a sterile fashion. The surgeons then scrubbed. Upon reentering the room, the left upper extremity was draped in a sterile fashion and the incision was marked out. Timeout was called, everyone agreed upon the side, the site, the procedure to be performed, patient identity and antibiotics given. Incision was taken down through skin and subcutaneous tissue, fat down to fascia. The stripe of the deltopectoral interval and cephalic vein were identified and blunt dissection was used to retract the deltoid. The cephalic vein was retracted laterally. Clavipectoral fascia was then incised and a cobra retractor was placed in the wound. The proximal one third of the pectoralis major insertion was released. Pectoralis tendon insertion was used to tenodesed the biceps tendon which was identified in the bicipital groove. Long head of the biceps was severely diseased. It was released at this time performing a tenotomy. Proximally we followed the biceps tendon after transecting it into the rotator interval. The rotator interval was split and the arm was externally rotated. The split was 1 cm medial to the bicipital groove. Subscapularis tendon was released. We released down the anterior portion of the humeral head and a mckeon elevator was used to release the inferior portion of the humeral head. The arm was externally rotated and the shoulder was dislocated. The humeral head was then cut at its natural retroversion. Once his humeral head cut was made humerus was retracted out of the way and the glenoid was exposed. After exposing the glenoid, the labrum and the remaining proximal biceps were debrided. At this time we are able to view the entire outer edge of the glenoid. A central pin was placed we sequentially reamed over this central pin to 40mm. Once this was completed the central screw was measured and found to be. The glenoid baseplate was screwed into place. Wound was closely irrigated out with normal saline we then drilled sequentially for 2 screws. Screws were placed superiorly and inferiorly and tightened down the screws. Once the screws were appropriately tightened into place the glenoid baseplate was compressed against the exposed subchondral bone. A 36mm glenosphere was impacted into place engaging the Gilliam taper. Attention was then turned towards the humerus. The humerus was again externally rotated exposing the proximal portion of the humerus. Central canal finder was then used to open up the canal. We reamed to a 18mm reamer. We then broached to a 18mm stem. We trialed the 4mm liner, with the 2mm humeral baseplate. We obtained an adequate reduction at this time with a nice stable shoulder. Good internal rotation to the gluteus, forward elevation to 140?, external rotation to 20?. Final components were then assembled on the back table, trials were removed and the wound was copiously irrigated with normal saline after dislocating the shoulder. Once the final components were assembled they were impacted into place. Shoulder was then reduced and found to be stable with good range of motion. Subscapularis tendon was repaired using #2 FiberWire. The wound was with chlorhexidine solution then copiously irrigated out with a 1 L normal saline lavage. The deltopectoral fascia was then closed using #1 Vicryl skin was closed using 2-0 Vicryl interrupted sutures and final skin closure was done with 3-0 Monocryl. Steri-Strips are placed for final skin closure. Sterile dressing was placed patient was then placed in a sling and awakened by anesthesia. Patient was then transferred to the PACU for recovery. Postoperative plan: Patient will be admitted to the hospital overnight. They will get physical therapy starting in 2 weeks with normal postoperative regimen. Patient will be placed on [] for DVT prophylaxis. The first postoperative appointment will be in 2 weeks for wound check and initiation of phase 1 physical therapy. During the course of the procedure the physician marketing administrative assistant played a vital role. His intimate knowledge of my steps in the procedure aided in safe and expedient completion of the procedure. The PA played a vital rolls in positioning particularly in obtaining the appropriate beach chair position and securing the patient's body and head to the table. The PA was also vital in the retraction of soft tissues during the exposure and especially the glenoid work as this is a vital part of the procedure to prevent neurovascular damage. the PA was also vital and protecting soft tissues during times of bony cuts and reaming. He also played a vital role in closure with my direct supervision. The PA was also important during reduction and dislocation of the joint and trials intraoperatively. Complications No intraoperative complication Admit VTE Documentation VTE Present on Admission: No VTE Mechan Device Prophylaxis: SCD's VTE Pharm Prophylaxis ordered?: Yes
[2021-12-01] MEDS: Lactated Ringers 1,000 ML 999 ML IV ×2 (07:49→12:00)
[2021-12-01] MEDS: Gabapentin 600 MG Tablet PO (07:50)
[2021-12-01] MEDS: Acetaminophen 500 MG Tablet 1000 MG PO (07:50)
[2021-12-01] MEDS: Celecoxib 200 MG Capsule 400 MG PO (07:50)
[2021-12-01 08:00] LABS: Bedside Glucose 124 mg/dL (74-106)
[2021-12-01] MEDS: Cefazolin 2 GM in 0.9% Normal Saline 100 ML IV (10:20)
[2021-12-01] MEDS: TXA 1000mg in NS100 100ml (IVPB at Incision) 660 MG IV (10:25)
[2021-12-01] MEDS: TXA 1000mg in NS100 100ml (IVPB at Closure) 660 MG IV (11:35)
[2021-12-01] MEDS: Cefazolin 1 GM/50 ML BAG IV (13:45)
== END 2021-12-01 15:36 | disposition home or self-care (01) ==
LOC: SDC 07:28 → AC 07:29
PROVIDERS: Anesthesiology; Visit Provider Specialist
PROC: (CPT 23472; principal; 2021-12-01 09:30)
DX: M19.012 Primary osteoarthritis, left shoulder (principal); M75.110 Incomplete rotator cuff tear or rupture of unspecified shoulder, not specified as traumatic; M25.712 Osteophyte, left shoulder; I10 Essential (primary) hypertension; E78.00 Pure hypercholesterolemia, unspecified; K21.9 Gastro-esophageal reflux disease without esophagitis; J45.909 Unspecified asthma, uncomplicated; H91.90 Unspecified hearing loss, unspecified ear; F32.A Depression, unspecified; Z79.1 Long term (current) use of non-steroidal anti-inflammatories (NSAID); Z87.891 Personal history of nicotine dependence
CPT/HCPCS: 23472; 64415; 01638; 36415; 73030; 82962; 83735; 85610; 85730; 87081; 88305; 88311; C1776; J7040; J7120; J2405